=== PATIENT | female | born 1950 | race Caucasian/White ===

== ENCOUNTER 2017-11-29 09:47 | Inpatient (IN) | payer MEDICARE ==
[~2017-11-29] VITALS: Ht 157.5 cm; Wt 46.3 kg
[2017-11-29] MEDS ORDERED: CITALOPRAM HBR20 MG PO (10:30)
[2017-11-29] MEDS ORDERED: METOPROLOL TAR100 MG PO (10:31)
--- NOTE | 2017-11-29 13:30 | NUR ---
PT ARRIVED FROM ED. AMBULATORY INDEPENDENT TO HOSPITAL BED. PT ALERT AND ORIENTED. DENIES PAIN, NAUSEA, OR OTHER CONCERNS. ASSESSMENT COMPLETE. IV IN LEFT FA FLUSHES WELL, SITE CDI. CALL LIGHT WITHIN REACH.
--- NOTE | 2017-11-29 15:40 | NUR ---
PT JANET CLEAR LIQUIDS, STARTED BOWEL PREP. PT UP A COUPLE TIMES TO BSC WITH MINIMAL ASSIST. RESTING IN BED OTHERWISE. CALL LIGHT WITHIN REACH.
--- NOTE | 2017-11-29 17:20 | NUR ---
PT WORKING ON BOWEL PREP. TAKING CLEARS. WATCHING TV DENIES NEEDS OR CONCERNS AT THIS TIME. CALL LIGHT WITHIN REACH. SATTING 100% ON RA.
--- NOTE | 2017-11-29 17:45 | NUR ---
PATIENT EATING DINNER, VITALS AND I/OS DONE BY THIS RACING SECRETARY AND HANDICAPPER AND RACING SECRETARY AND HANDICAPPERChantel BRADSHAW. CALL LIGHT IN REACH.
--- NOTE | 2017-11-29 18:06 | NUR ---
PATIENT CALLED FOR ASSISTANCE TO BEDSIDE COMMODE. CALLLIGHT IN REACH
--- NOTE | 2017-11-29 19:00 | NUR ---
PT SL AND TRANSFERRED TO IMAGING FOR CT. SBA TO WHEELCHAIR FOR TRANSFER.
--- NOTE | 2017-11-29 19:15 | NUR ---
BACK FROM DI. VIA W/C
--- NOTE | 2017-11-29 19:45 | NUR ---
COOP WITH ASSESSMENT, PT ON BOWEL PREP REGIMEN, AWRE OF IMPORTANCE TO COMPLETE MIRALAX BOWEL PREP. TOLERATING IT IN VERY SMALL AMOUNTS. CONTINUE TO ENCOURAGE PO BOWEL PREP FLUID PREPARATION. , AWARE THAT WE STILL NEED A URINE SAMPLE. UP TO BSC X1, DARK RED LIQUID-AND SEMIFORMED- COMBILATION OF MAROON COLORED BM NOTED. HEMOCULT+. IVF INFUSING.
--- NOTE | 2017-11-29 21:16 | NUR ---
CHECKED IN ON PT, HAS REMAINING BOWEL PREP IN CUP AT BEDSIDE OF BOTTLE 1. ENCOURAGED PT TO FINISH THAT CUP IN THE NEXT 20 MIN, SO SHE CAN GET STARTED ON THE 2ND BOTTLE, SHE SAID I JUST DON'T KNOW IF I CAN, EDUCATED HER ON ALL THE REASONS WHY SHE NEEDS TO FINISH IT, SAID I KNOW BUT I HAVEN'T BEEN EATING MUCH LAST FEW DAYS. WILL GO BACK AND CHECK AGAIN, THIS IS THE SECOND TIME IN THE PAST 45 MIN THAT THIS NURSE HAS ENCOURAGED HER TO GET THE BOWEL PREP IN, HAS HER PRIMARY NURSE AVIS. PT SIGNED THE CONSENT FORM, PLACED ON CHART.
--- NOTE | 2017-11-29 23:15 | NUR ---
CLEANED UP MESS, WATERY BM ON THE FLOOR, CLEANED UP PATIENT, CHANGED GOWN AND LINEN.
--- NOTE | 2017-11-30 00:59 | NUR ---
Pt resting, no s/s distress, continues having maroon colored liquid stools. Pt NPO for am procedure
--- NOTE | 2017-11-30 05:32 | NUR ---
PT CURRENTLY RESTING, EYES CLOSED, CONTINUES TO HAVE LIQUID MAROON COLORED STOOLS, DID NOT COMPLETED HER BOWEL PREP, DRANK ONLY 1/2 DOSE OF THE MILAX EVEN AFTER MUCH ENCOURAGEMENT. NPO SINCE 299. PULLED IV OUT BY ACCIDENT. REPLACED. R ARM RESTRICTED EXTREMITY. CONSENT SIGNED FOR EGD/COLONOSCOPY. PT HAD AN ABD XR EARLIER BEGINING OF SHIFT. NO C/O N/V OR ABD PAIN
--- NOTE | 2017-11-30 06:48 | NUR ---
Resting, eyes closed. IVF infusing. no c/o n/v or pain. continues to have liquid bm. Requires one person assist and fww
--- NOTE | 2017-11-30 08:24 | NUR ---
BEDSIDE REPORT RECEIVED FROM AVIS WINSTON. WHITE BOARD UPDATED. PATIENT SLEEPING AT THIS TIME. ALLOWED SLEEP. IVF INFUSING INTO LEFT ARM. CONTINUOUS PULSE OX READS 100% SATURATION. PATIENT AWAKE NOW WATCHING TELEVISION. UP TO BSC.
--- NOTE | 2017-11-30 09:11 | NUR ---
PT C/O HEARTBURN. ELEVATED PATIENT IN BED AND INCREASED HOB. WILL MONITOR.
--- NOTE | 2017-11-30 09:44 | NUR ---
PT UP ON BSC. NEW HAT PLACED IN COMMODE TO COLLECT URINE SAMPLE.
--- NOTE | 2017-11-30 11:31 | NUR ---
11/30/17 1131 Maria Alejandra Moore 1124-PATIENT ARRIVED TO PACU ON 3L NC O2 SAT 98% OXIMETER ON FOREHEAD. PATIENT LAYING LEFT LATERAL. ABDOMEN SOFT. REACTIVE TO VOICE. RR EVEN. 1130-PATIENT AWAKE DENIES PAIN OR NAUSEA. ENCOURAGED TO PASS FALTUS.
--- NOTE | 2017-11-30 12:10 | NUR ---
TO TO ROOM 112 FROM SURGERY. PT ALERT AND ORIENTED. PT ABLE TO TRANSFER HERSELF FROM STRETCHER TO HOSPITAL BED. PT'S MOTHER AT BEDSIDE. PT V/S STABLE. BEDSIDE REPORT FROM PROFESSIONAL SPORTS SCOUT.
--- NOTE | 2017-11-30 12:55 | NUR ---
PT ARRIVED TO FLOOR AT 1220. JAYDA RN CHECKED PATIENT IN AND RECEIVED REPORT FROM PROP SAWYER. PATIENT DOING WELL. FULL LIQUID TRAY ORDERED FOR PATIENT.
--- NOTE | 2017-11-30 13:08 | CONS ---
[facility] [address], [place] [address] Signed DATE OF CONSULTATION: 11/29/2017 CONSULTING PHYSICIAN: Jagdish Aguilera MD REQUESTING PHYSICIAN: Jennifer Coffman MD PROBLEM: Melena, epigastric pain, and weight loss. HISTORY OF PRESENT ILLNESS: This 67-year-old white woman is known to me from the past having undergone right total mastectomy with sentinel lymph node biopsy in 2006. She had stage I breast carcinoma. She did have chemotherapy following this. Medullary cancer was noted. She was assisted in her care by Dr. Nava at that time. She has been under the management of Dr. Kimberli Lozano. She has noted a 20-pound weight loss over the past several weeks and some upper abdominal pain. A plan for endoscopic evaluation as well as CT scan was outlined by Dr. Lozano. Indeed, the CT scan was to be performed in 2 days from now. She presented to the emergency room, where she was noted to have very dark stool considered with melena and a CBC showing a decreased hematocrit of 27. Her platelet count was 618,000. She is admitted for further evaluation and care to the care of Dr. Coffman. The patient denies any hematemesis. She does have history of poor appetite with nausea and a 20-pound weight loss over the past month or so. She is noted to have a markedly elevated creatinine at time of admission. Creatinine now 3.69. This is thought to be related to acute dehydration. PAST MEDICAL HISTORY: 1. Right-sided breast cancer, status post right total mastectomy, sentinel lymph node biopsy, considered stage I. Subsequent chemotherapy. 2. Hypertension. SOCIAL HISTORY: She is accompanied by her mother with whom she lives. Her several years ago from a brain bleed. She has a son, but he is not available at this time, as he is in the [facility]. ALLERGIES: Electronically Signed By: JAGDISH AGUILERA MD 11/30/17 1308 PATIENT NAME: JENNIFER GOODE CONSULTATION DATE OF : 48 REPORT #: [id number] PHYSICIAN: JAGDISH AGUILERA MD PCP: KIMBERLI LOZANO MD REPORT IS CONFIDENTIAL AND NOT TO BE RELEASED WITHOUT AUTHORIZATION [facility] [address] [place], [place] [address] Signed She has no known drug allergies. REVIEW OF SYSTEMS: Denies any dysphagia or hematemesis particularly. Does have some vague abdominal pain mostly in the upper abdomen. Has had weight loss as described. Denies any dysuria. PHYSICAL EXAMINATION: GENERAL: Pleasant white woman, who does not look to be in severe distress. She is accompanied by her mother. NECK: Trachea is midline. CHEST: Shows normal respiratory excursion. There is evidence of mastectomy. Pulses regular. ABDOMEN: Nondistended and soft. There is no palpable mass. I detect no ascites. EXTREMITIES: Show no clubbing, cyanosis, or edema. LABORATORY DATA: Lab studies were as previously noted. ASSESSMENT: The patient has a source of a gastrointestinal bleeding, which is manifest as anemia. This may well be a peptic source of problem for which an upper endoscopy would be helpful in diagnosis. Conversely, it may be possible she has a lower GI bleed source. She denies family history of stomach, esophageal, or colonic cancer, but possibility of a malignant source of bleeding is real. As regard to her breast cancer, there is no current evidence of recurrent breast cancer. Notes were reviewed showing she has been evaluated by Dr. Nava in 2010 and considered to have no evidence of disease at that time. PLAN: As I have discussed with Dr. Coffman, we will initiate a bowel prep today MiraLAX based-type and plan for upper endoscopy and colonoscopy tomorrow. The risks of bleeding, infection, perforation, and so forth were reviewed with her. By then, her creatinine may have improved with rehydration. Jagdish Aguilera MD JM/MODL /[id number] Electronically Signed By: JAGDISH AGUILERA MD 11/30/17 1308 PATIENT NAME: JENNIFER GOODE CONSULTATION DATE OF : 48 REPORT #: [id number] PHYSICIAN: JAGDISH AGUILERA MD PCP: KIMBERLI LOZANO MD REPORT IS CONFIDENTIAL AND NOT TO BE RELEASED WITHOUT AUTHORIZATION [address] [address] Signed cc: MD Jennifer Huntley MD Michael Driver Copies: KIMBERLI LOZANO MD, CYNTHIA MD DRIVER, MICHAEL ~ Electronically Signed By: JAGDISH AGUILERA MD 11/30/17 1308 PATIENT NAME: JENNIFER GOODE CONSULTATION DATE OF : 48 REPORT #: [id number] PHYSICIAN: JAGDISH AGUILERA MD PCP: KIMBERLI LOZANO MD REPORT IS CONFIDENTIAL AND NOT TO BE RELEASED WITHOUT AUTHORIZATION
--- NOTE | 2017-11-30 14:39 | EKG ---
[facility] [address] [facility] [place] [address] Signed Sinus rhythm with short [place] Anterior infarct , age undetermined Abnormal ECG No previous ECGs available Confirmed by ROGELIO DIANA MD ([id number]) on 11/30/2017 2:39:14 PM Electronically Signed By: ROGELIO DIANA MD 11/30/17 1439 PATIENT NAME: JENNIFER GOODE Electrocardiogram DATE OF : 48 PHYSICIAN: ROGELIO DIANA MD REPORT #: [id number] REPORT IS CONFIDENTIAL AND NOT TO BE RELEASED WITHOUT AUTHORIZATION
--- NOTE | 2017-11-30 14:53 | NUR ---
pt has visitor at bedside at this time.
--- NOTE | 2017-11-30 16:55 | NUR ---
pt resting comfortably with eyes closed. appears to be sleeping. resp rate even and unlabored.
--- NOTE | 2017-11-30 18:12 | NUR ---
PT HAD EGD/COLONOSCOPY DONE TODAY BY DR AGUILERA. FOUND SUSPICIOUS LESION THAT WAS BIOPSIED, A LARGE ULCER FOUND AND A VESSEL THAT WAS EXPOSED WAS CLIPPED. MAG RIDERS X2 TODAY. NS @ 100ML/HR. RIGHT ARM RESTRICTED. LABS DRAWN AT 1800. CARAFATE BEFORE MEALS. C/O ACID REFLUX FEELING AFTER EATING. WILL NEED REPEAT EGD IN 4-6WK TO SEE IF ULCER HEALING.
--- NOTE | 2017-11-30 19:04 | NUR ---
IN ROOM FOR REPORT, PT IS AWAKE IN BED. SHE DENIES NEEDS AT THIS TIME.
--- NOTE | 2017-11-30 21:50 | NUR ---
IN ROOM TO ASSESS PT AND ADMINISTER MEDICATIONS. ALSO HELPED HER TO THE COMMODE. SHE IS DOING GOOD ON RA WITH CONT PULSE OX. SHE HAS A COUGH THAT SHE CALLS A "SMOKERS COUGH". SHE DENIES PAIN AT THIS TIME. CALL LIGHT IS WITHIN REACH.
--- NOTE | 2017-11-30 22:03 | NUR ---
NOTIFIED DR DIANA THAT PT OPT TO NOT TAKE LOPRESSOR TONIGHT.
--- NOTE | 2017-11-30 23:32 | NUR ---
PT IS RESTING WITH EYES CLOSED, RESPIRATIONS ARE EVEN AND NONLABORED. CALL LIGHT IS WITHIN REACH.
--- NOTE | 2017-12-01 01:12 | NUR ---
PT IS RESTING WITH EYES CLOSED, RESPIRATIONS ARE EVEN AND NONLABORED. CALL LIGHT IS WITHIN REACH.
--- NOTE | 2017-12-01 03:02 | NUR ---
PT IS RESTING WITH EYES CLOSED, RESPIRATIONS ARE EVEN AND NONLABORED ON CONT PULSEOX AT 100%.
--- NOTE | 2017-12-01 05:15 | NUR ---
PT IS RESTING WITH EYES CLOSED, RESPIRATIONS ARE EVEN AND NONLABORED. CALL LIGHT IS WITHIN REACH.
--- NOTE | 2017-12-01 06:38 | NUR ---
ADMINISTERED CARAFATE AND BROUGHT PT FRESH ICEWATER. PT VOIDED AND IS BACK IN BED. PT STATES SHE HAS A LITTLE ABDOMINAL DISCOMFORT. SHE DENIES FURTHER NEEDS AT THIS TIME. CALL LIGHT IS WITHIN REACH.
--- NOTE | 2017-12-01 06:43 | NUR ---
PT RESTED WELL THROUGH THE NIGHT. HELD HER LOPRESSOR LAST NIGHT, DR DIANA IS AWARE. SHE IS TOLERATING A LIQUID DIET WITH SOME DISCOMFORT. SHE IS A SBA. IV FLUID IS NS AT 125 MLS/HR.
--- NOTE | 2017-12-01 07:45 | NUR ---
PATIENT WAS OFFERED A SHOWER. PATIENT REFUSED AT THIS TIME. WILL ASK AGAIN LATER. HANDS AND FACE WASHED. PATIENT SITTING UP IN BED CALL BUTTON IN REACH.
--- NOTE | 2017-12-01 07:55 | NUR ---
BEDSIDE REPORT RECEIVED FROM JOSIAS WINSTON. PATIENT LYING BACK IN BED WITH HOB RAISED. AWAKENED TO SOUND. WHITE BOARD UPDATED. ALL QUESTIONS ANSWERED. PATIENT EATING BREAKFAST NOW. TOLERATING FULL LIQUID DIET WELL. NO REFLUX FEELING YET. ADMINISTERED MORNING SCHEDULED MEDS. WILL REMOVE CONT PULSE OX FROM FOREHEAD.
--- NOTE | 2017-12-01 08:46 | OR ---
[facility] [address] [place], [place] [address] Signed DATE OF OPERATION: 11/30/2017 SURGEON: Jagdish Aguilera MD PREOPERATIVE DIAGNOSIS: Weight loss, upper abdominal pain, and melena. POSTOPERATIVE DIAGNOSES: 1. Giant duodenal ulcer with visible vessel. 2. Abnormal lesion of distal ascending colon. PROCEDURES: 1. Esophagogastroduodenoscopy with biopsy. 2. Esophagogastroduodenoscopy with application of hemoclips to visible vessel. 3. Total colonoscopy to cecum with biopsy of suspicious lesion of ascending colon. 4. Endoscopic tattoo of right colonic lesion. ANESTHESIA: Intravenous sedation propofol infusion; Rylee Escalona CRNA. INDICATION: This 67-year-old white woman was admitted by Dr. Coffman for melena and weight loss of at least 20 pounds. She has other medical problems including elevated creatinine and recently hyponatremia. She has been having upper abdominal pain, likely accounting for poor oral intake and weight loss and recently developed melena. Hematocrit is about 27. She has had no hematemesis. She has never had colonoscopy in the past and she has not previously been under care for a ulcer or other problem. She is admitted to undergo upper endoscopy and colonoscopy having undergone bowel prep yesterday. She understands the risks of bleeding, infection, perforation, and other unforeseen complications and wished to proceed. FINDINGS: Upper endoscopy identified the source of bleeding, no doubt. It is a large ulcer of the first portion of the duodenum. A visible vessel was noted and application of hemoclips x2 was accomplished. The remaining ulcer had a dense beltre white base. The stomach itself showed no evidence of ulceration. CLOtest was negative 20 minutes postprocedure. Esophagus was normal. The remaining duodenum was normal. On colonoscopy, she was found to have a somewhat suspicious lesion, which was rather small in the distal ascending colon. This was biopsied well and marked with Endomark Electronically Signed By: JAGDISH AGUILERA MD 12/01/17 0846 PATIENT NAME: JENNIFER GOODE OPERATIVE REPORT DATE OF : 48 REPORT #: [id number] PHYSICIAN: JAGDISH AGUILERA MD PCP: KIMBERLI DEVLIN MD REPORT IS CONFIDENTIAL AND NOT TO BE RELEASED WITHOUT AUTHORIZATION [facility] [address], [place] [address] Signed tattoo dye. The remaining colon was normal. DESCRIPTION OF PROCEDURE: The patient was brought to the operating room #2, now serving as endoscopy suite, placed in lateral decubitus position, and underwent topical Hurricaine spray hypopharyngeal anesthesia by the healthcare technician. A bite block was placed. She was given intravenous sedation with propofol infusional technique. An Olympus video upper endoscope was passed in the hypopharynx. The vocal cords were normal. Scope was advanced to the esophagus throughout its length, it was normal. Scope was passed to the stomach. Excess gastric juices were suctioned free. There was no sign of blood in the stomach. Rugal folds were normal. The antrum was reasonably normal, as was the pylorus. The scope was passed through the pylorus into the duodenum, which showed immediately second portion, which showed mild inflammatory change. Biopsies were obtained. The scope was carefully withdrawn and a very large bulbar ulcer was noted. It had a beltre white base. Irrigation was undertaken and a visible vessel was noted. It was not actively bleeding at this time, but would be considered high risk for bleeding. With all due care, 2 hemoclips were applied to the vessel. A small amount of bleeding occurred application, but then quickly stopped. Hemostasis was considered good. The scope was then withdrawn to the stomach. Biopsies were taken of the antrum for both DAREK and pathologic testing. Retroflex view undertaken showing a hiatal hernia of the GE junction. The distal esophagus showed no sign of inflammatory change or Perez's epithelium. Biopsies obtained, nevertheless. The scope was further withdrawn and removed. Consideration was made for avoiding the colonoscopy, but since she has never had colonoscopy in the past, I have deemed her appropriate to proceed particularly since she is gone through a bowel prep. Digital rectal examination was undertaken and additional sedation was given, and an [employer] video colonoscope passed in the rectum. The scope was manipulated throughout the colon, ultimately intubating the area of the cecum, where visualization was good. The ileocecal valve was visualized and photographs were taken. The scope was carefully withdrawn and then the distal ascending colon was a very subtle, but real adenomatous-appearing lesion. Multiple biopsies were taken of it. It was quite firm and somewhat suspicious to me for malignancy. On that basis and given its small size, Endomark tattoo dye was used with a sclerotherapy needle to rylee the site for future intervention. The scope was then withdrawn more fully and the remaining colon appeared entirely normal. Retroflexed view was normal as well. Scope was removed and the patient was taken to the recovery room in good condition. CONCLUDING DIAGNOSES: 1. Bleeding source related to giant duodenal ulcer with visible vessel, now secured with hemoclips. Electronically Signed By: JAGDISH AGUILERA MD 12/01/17 0846 PATIENT NAME: JENNIFER GOODE OPERATIVE REPORT DATE OF : 48 REPORT #: [id number] PHYSICIAN: JAGDISH AGUILERA MD PCP: KIMBERLI DEVLIN MD REPORT IS CONFIDENTIAL AND NOT TO BE RELEASED WITHOUT AUTHORIZATION [facility] [address] [place] [address] Signed 2. Suspicious lesion of distal ascending colon, fully biopsied and marked with Endomark tattoo dye. PLAN: She will return to the regular nursing floor and will be initiated on a full liquid diet, but also start with Carafate and continue with Protonix. Repeat upper endoscopy and colonoscopy will be undertaken in the next several weeks. MD ANSON Palmer/EDINSONL /[id number] cc: MD Kimberli Romo MD Lohith Veerappa Reddy, MD Copies: JENNIFER COFFMAN MD, JONATHAN MD REDDY, LOHITH VEERAPPA MD ~ Electronically Signed By: JAGDISH AGUILERA MD 12/01/17 0846 PATIENT NAME: JENNIFER GOODE OPERATIVE REPORT DATE OF : 48 REPORT #: [id number] PHYSICIAN: JAGDISH AGUILERA MD PCP: KIMBERLI DEVLIN MD REPORT IS CONFIDENTIAL AND NOT TO BE RELEASED WITHOUT AUTHORIZATION
--- NOTE | 2017-12-01 09:44 | NUR ---
PATIENT UP TO BATHROOM AND BACK TO BED. PATIENT COMPLAINS OF GAS PAIN. OFFERED TO WALK WITH PATIENT IN HALLWAY. PATIENT REFUSED. FRESH ICE WATER GIVEN. CALL BUTTON IN REACH. NO OTHER NEEDS AT THIS TIME. PATIENT REFUSED ORAL CARE AT THIS TIME AND STATES SHE WILL NEXT TIME. SHE GETS UP TO THE BATHROOM.
--- NOTE | 2017-12-01 11:10 | NUR ---
pt ambulated halls x1 lap. patient tolerated fair. had to stop and sit to take breaks d/t legs feeling weak. lying in bed now with visitors at bedside.
--- NOTE | 2017-12-01 13:24 | NUR ---
MED REC COMPLETE
--- NOTE | 2017-12-01 14:16 | NUR ---
PT RESISTANT TO SHOWER TODAY. CHIP LOFT WORKER FREQUENTLY ENCOURAGING PATIENT TO SHOWER. NURSE TO ENCOURAGE PATIENT WELL.
--- NOTE | 2017-12-01 18:22 | NUR ---
AMBULATED HALLS X1 TODAY. WEAKNESS IN LEGS. TOOK SEVERAL BREAKS DURING ONE LAP. SBA/1PA. PHOS NAK PACKETS ORDERED FOR PHOS 1.5. NS @ 50ML/HR. D/C TOMORROW PENDING LABS IN AM. MAY NEED TO TRANSFUSE BLOOD IF H&H STILL LOW. GI COCKTAIL GIVEN X1 FOR PAIN FROM ACID REFLUX FEELING. IMPROVED. CARAFATE BEFORE MEALS.
--- NOTE | 2017-12-01 19:08 | NUR ---
IN ROOM FOR REPORT, PT IS AWAKE IN BED WITH VISITORS IN THE ROOM. SHE DENIES NEEDS AT THIS TIME. CALL LIGHT IS WITHIN REACH.
--- NOTE | 2017-12-01 20:16 | NUR ---
ROUNDED CHARGE. RN IN THE ROOM. PATIENT DENIES ANY COMMENTS, QUESTIONS ORC CONCERNS. NO NEEDS NOTED. CALL LIGHT IN REACH.
--- NOTE | 2017-12-01 20:19 | NUR ---
IN ROOM TO ADMINISTER MEDICATIONS AND ASSESS PT. SHE STATES SHE CONTINUES TO FEEL WEAK. SHE IS PASSING LOOSE GREEN STOOL AND BOWEL TONES ARE HYPERACTIVE. NO BLOOD SEEN IN STOOLS. SHE IS TOLERATING A CLEAR LIQUID DIET WITH 1-2 PAIN FROM ABD DISCOMFORT. SHE DENIES NEEDS AT THIS TIME. CALL LIGHT IS WITHIN REACH.
--- NOTE | 2017-12-01 23:42 | NUR ---
PT CALLED REQUESTING THE GI COCKTAIL STATING SHE HAS BEEN UNCOMFORTABLE SINCE TAKING HER EVENING MEDS. ADMINISTERED IT AND PT DENIES FURTHER NEEDS. CALL LIGHT IS WITHIN REACH.
--- NOTE | 2017-12-02 00:30 | NUR ---
PT IS RESTING WITH EYES CLOSED, RESPIRATIONS ARE EVEN AND NONLABORED. CALL LIGHT IS WITHIN REACH.
--- NOTE | 2017-12-02 00:49 | NUR ---
STANDBY ASSISTED PATIENT TO THE BATHROOM AND BACK TO BED. WARM BLANKET PROVIDED. CALL LIGHT WITHIN REACH. NO OTHER NEEDS AT THE MOMENT.
--- NOTE | 2017-12-02 03:28 | NUR ---
PT STATES THE GI COCKTAIL HELPED WITH HER ABD PAIN. SHE DENIES FURTHER NEEDS AT THIS TIME. CALL LIGHT IS WITHIN REACH.
--- NOTE | 2017-12-02 05:05 | NUR ---
PT SLEPT WELL THROUGH THE NIGHT. IV IS INFUSING NS @50MLS/HR. PT HAD SEVERAL LOOSE STOOLS THAT ARE GREEN IN COLOR NO BLOOD NOTED. PT IS TOLERATING FULL LITQUID DIET WITH SOME ABD PAIN. H&H WILL BE CHECKED AGAIN THIS MORNING.
--- NOTE | 2017-12-02 06:02 | NUR ---
IN ROOM TO ADMINISTER CARAFATE. PT DENIES FURTHER NEEDS AT THIS TIME. CALL LIGHT IS WITHIN REACH.
--- NOTE | 2017-12-02 07:35 | NUR ---
PATIENT RESTING IN BED. PATIENT STATES SHE DIDNT WANT TO WASH HANDS AND FACE OR BRUSH HER TEETH AT THIS TIME, THAT SHE ALREADY SHOWERED AND CLEANED UP YESTERDAY AND "THAT WAS ENOUGH FOR ME". PATIENT CALL LIGHT IN REACH. NO OTHER NEEDS AT THIS TIME.
--- NOTE | 2017-12-02 08:50 | NUR ---
PATIENT ASSESSMENT COMPLETED, PATIENT WITH EVEN AND UNLABORED BREATHING AT REST, EXERTIONAL DYSPNEA NOTED WHILE AMBULATING TO THE RESTROOM, PATIENT WITH OCCASIONAL COUGH, NO SPUTUM, OTHERWISE LUNG SOUNDS CLEAR. PATIENT WITH NORMAL CIRCULATION, GOOD DISTAL CAP REFILL, BILATERAL RADIAL PULSES PALPABLE. PATIENT WITH STANDBY ASSIST DUE TO GENERALIZED WEAKNESS. ABDOMINAL WITH MILD DISTENSION, PATIENT REPORTS THIS IS NORMAL, SOFT, NON-TENDER, HYPERACTIVE BOWEL TONES IN ALL QUADRANTS.
--- NOTE | 2017-12-02 08:50 | NUR ---
PATIENT STATING FEELS "GASSY" DENIES NAUSEA OR ABDOMINAL PAIN. PATIENT ABLE TO AMBULATE WITH STANDBY ASSISTANCE DUE TO GENERALIZED WEAKNESS TO BATHROOM, PATIENT WITH DARK/GREEN SMALL LOOSE STOOL, NORMAL URINE OUTPUT. PATIENT REPORTS DECREASE IN FEELING "GASSY" AFTER BOWEL MOVEMENT. PATIENT REPOSITIONED IN BED AND NEW WARM BLANKETS PROVIDED FOR COMFORT. PATIENT DENIES PAIN AT THIS TIME.
--- NOTE | 2017-12-02 09:32 | NUR ---
PATIENT REPORTING FEELINGS OF ACID REFLUX AFTER COMPLETING 50% OF BREAKFAST, PRN G.I. COCKTAIL WILL BE ADMINISTERED.
--- NOTE | 2017-12-02 09:34 | NUR ---
PATIENT RESTING IN BED. CALL LIGHT IN REACH. NO OTHER NEEDS AT THIS TIME.
--- NOTE | 2017-12-02 09:44 | NUR ---
NEW INTRAVENOUS FLUIDS STARTED DUE TO COMPLETION OF PREVIOUS NORMAL SALINE 1 LITER, IV CONTINUOUS.
--- NOTE | 2017-12-02 09:50 | NUR ---
DISCUSSED WITH PATIENT ABOUT NEW ORDERS FOR ADMINISTRATION OF TWO UNITS OF PACKED RED BLOO CELLS. ANSWERED PATIENT'S QUESTIONS ABOUT CONSENT FORM, PATIENT READ AND SIGNED CONSENT FORM. LAB NOTIFIED.
--- NOTE | 2017-12-02 11:13 | NUR ---
PATIENT REPORTS IMPROVEMENT OF ACID REFLUX AFTER ADMINISTRATION OF G.I. COCKTAIL.
--- NOTE | 2017-12-02 11:48 | NUR ---
PATIENT WITH STANDBY ASSIST TO BATHROOM, PATIENT WITH NOTED GENERALIZED WEAKNESS AND SLIGHT UNSTEADY GAIT.
--- NOTE | 2017-12-02 11:56 | NUR ---
PATIENT RESTING IN BED, CALL LIGHT IN REACH. NO OTHER NEEDS AT THIS TIME.
--- NOTE | 2017-12-02 12:39 | NUR ---
UNIT 1 OF 2 PRBC'S CURRENTLY INFUSING, STAYED AT PATIENT BEDSIDE FOR FIRST 15 MINUTES OF TRANSFUSION, NO SIGNS OR SYMPTOMS OF BLOOD REACTION. PATIENT RESTING COMFORTABLY, CALL LIGHT WITHIN REACH, WARM BLANKETS PROVIDED.
--- NOTE | 2017-12-02 13:19 | NUR ---
PT RESITNG IN BED, RRECOGNIZED ME AND FELT COMFORTABLE WITH MY PRESENCE. PT STILL MOURNING THE LOSS OF HER CLOSE FRIEND'S RECENTLY. NOW SHE IS DEALING WITH NEW HEALTH ISSUES-STOMACH ULCERS. PT WAS RECEIVING A BLOOD TRANSFUSION WE VISITED. PT EXPRESSED SOME FRUSTRATION AT HER OWN HEALTH ISSUES THAT HAVE DEFINATELY PUT A HOLD ON HER LIFE, AND LIMITED HER ABLILITY TO BE THERE FOR HER FRIEND. PT REQUESTED PRAYER, WILL CONTINUE TO FOLLOW NEEDED
--- NOTE | 2017-12-02 13:30 | NUR ---
PT WITH IV SITE LEAKING, BLOOD TRANSFUSION STOPPED. IV DISCONTINUED. NEW IV STARTED TO LEFT UPPER ARM, PT TOLERATED WELL. BLOOD INFUSION RESTARTED. PT RESTING IN BED. PT DENIES OTHER NEEDS AT THIS TIME.
--- NOTE | 2017-12-02 14:07 | NUR ---
PATIENT RESTING IN BED, CALL LIGHT IN REACH. FAMILY IN ROOM. NO OTHER NEEDS AT THIS TIME.
--- NOTE | 2017-12-02 15:30 | NUR ---
TRANSFUSION COMPLETED, PATIENT TOLERATED WELL, NO SIGNS AND SYMPTOMS OF TRANSFUSION REACTION.
--- NOTE | 2017-12-02 15:51 | NUR ---
PATIENT WITH SECOND UNIT OF BLOOD CURRENTLY INFUSING, NO SIGNS OR SYMPTOMS OF TRANSFUSION REACTION DURING FIRST 15 MINUTES OF BLOOD TRANSFUSION, PATIENT RESTING COMFORTABLY WITH NO FURTHER COMPLAINTS.
--- NOTE | 2017-12-02 15:58 | NUR ---
PATIENT RESTING IN BED. CALL LIGHT IN REACH. NO OTHER NEEDS AT THIS TIME.
--- NOTE | 2017-12-02 17:59 | NUR ---
TRANSFUSION 2 OF 2 COMPLETED. PT TOLERATED WELL. NO S/S OF TRANSFUSION REACTION. PT RESTING IN BED. PT DENIES OTHER NEEDS AT THIS TIME.
--- NOTE | 2017-12-02 18:17 | NUR ---
PATIENT RESTING IN BED, RN IN ROOM. RN STATES SHE WILL DOCUMENT VITALS. NO OTHER NEEDS AT THIS TIME.
--- NOTE | 2017-12-02 18:33 | NUR ---
PT ON ROOM AIR, LUNG SOUNDS DIMINISHED IN BASES, NONPRODUCTIVE COUGH. PT RECEIVED 2 UNITS PRBC TODAY, NEW IV TO LEFT UPPER ARM. PT TOLERATING SOFT DIET, CARAFATE BEFORE MEALS, GI COCKTAIL GIVEN X1. PT UP WITH SBA TO BATHROOM, WEAKNESS. PT SHOULD DISCHARGE TOMORROW.
--- NOTE | 2017-12-02 20:49 | NUR ---
ROUNDED CHARGE. PATIENT IS RESTING IN BED WATCHING TV. PATIENTS TRAY TAKEN TO THE RETURN AND SANDWICH PLACED IN THE FRIDGE FOR LATER. PATIENT DENIES ANY COMMENTS, QUESTIONS, OR CONCERNS. NO NEEDS NOTED. CALL LIGHT IN REACH.
--- NOTE | 2017-12-02 20:51 | NUR ---
VITALS AND I&OS DONE AND CHARTED. FRESH ICE GIVEN. BEDSIDE TABLE AND CALL LIGHT WITHIN REACH.
--- NOTE | 2017-12-02 21:20 | NUR ---
gi cocktail given on requests c/o sore throat. Coop with assessment. Moist productive cough, very scant amount soft phlegm clear oral drainage after coughing sometimes
--- NOTE | 2017-12-03 02:33 | NUR ---
PT AWAKENS EASILY, C/O UNABLE TO FEEL RESTED TONIGHTS, WORRIED ABOUT AM DC. REASSURED. NO FURTHER C/O THROAT PAIN OR PAIN. TURNS SELF IN BED,
--- NOTE | 2017-12-03 04:40 | NUR ---
RESTING, CONTINUES TO HAVE MOIST, PRODUCTIVE COUGH OF SCANT AMOUNT OF PHLEGM, NO OTHER C/O, NO FURTHER C/O RECTAL BLEEDING.
--- NOTE | 2017-12-03 05:41 | NUR ---
PT RESTING, EYES CLOSED, [place] DISTRESS. C/O UPSET STOMACH AND SORE THROAT X1, RECEIVED GI COCKTAIL AT HER REQUESTS. EFFECTIVE. NO C/O BLOODY STOOLS . REQUIRES ONE PERSON ASSIST, ON ROOM AIR. PT WAS ANXIOUS EARLIER ON THE SHIFT DUE TO PENDING HOME DC. REASSURED. CALMED DOWN. NO C/O N/V OR PAIN
--- NOTE | 2017-12-03 06:26 | NUR ---
Awake watching TV, no c/o abd pain or n/v
--- NOTE | 2017-12-03 07:36 | NUR ---
REPORTED TO CRITICAL LAB VALUE AT THIS TIME.
--- NOTE | 2017-12-03 07:57 | NUR ---
HEAD TO TOE COMPLETED AND 325 MG FERROUS SULFATE ADMINISTERED AROUND 0740. PT REPORTS NO C/O PAIN BUT CAN FEEL THAT SHE HAD A PROCEDURE DONE ON HER ABDOMEN. PT IS IN GOOD SPIRITS, DENIES ANY OTHER NEEDS AT THE MOMENT AND IS HOPING TO BE DISCHARGED TODAY.
--- NOTE | 2017-12-03 08:00 | NUR ---
PT WITH UPSET STOMACH, GIVEN PRN GI COCKTAIL. PT EDUCATED ON TAKING IRON TABLET WITH MEALS TO PREVENT GI UPSET. PT DENIES TOHER NEEDS AT THIS TIME.
--- NOTE | 2017-12-03 09:49 | NUR ---
FOCUSED ASSESSMENT, VITALS, I&O COMPLETED. HOWEVER PT IS STILL SNACKING ON BREAKFAST.
--- NOTE | 2017-12-03 11:38 | NUR ---
BOWEL TONES ACTIVE IN ALL FOUR QUADRANTS, PT DENIES ANY PAIN. SHE IS UP EATING LUNCH AND WATCHING TV. THE PLAN IS TO DO BED BATH, BED CHANGE, AND FACIAL CARE AFTER LUNCH.
--- NOTE | 2017-12-03 11:50 | NUR ---
REPORT TO MALCOM WINSTON AT THIS TIME
--- NOTE | 2017-12-03 12:00 | NUR ---
ASSUMING PATIENT'S CARE AT THIS TIME. PATIENT UP TO CHAIR, APPEARS IN NO DISTRESS. ANSWERED ALL QUESTIONS. CALL LIGHT IN REACH. EATING LUNCH
--- NOTE | 2017-12-03 14:09 | NUR ---
BOWEL TONES ACTIVE IN ALL FOUR QUADRANTS. RONCHI AUSCULATED IN LEFT UPPER LOBE AND DIMINISHED RONCHI IN LEFT LOWER LOBE, RIGHT LOBES ARE CLEAR. PT REPORTS 0/10 PAIN AND IS STILL WORKING ON HER LUNCH. MOTHER JUST LEFT AND DAUGHTER IS IN THE ROOM VISITNG. BED BATH, YADIRA CARE, EYE CARE, AND LINEN CHANGE ALL COMPLETED AND PHOSPHATE WAS ADMINISTERED. PT TOILETED AND BACK IN BED.
--- NOTE | 2017-12-03 14:17 | NUR ---
CONSULT RECEIVED FOR HELPING PATIENT UNDERSTANDS FOODS SHE CAN EAT WITH A PEPTIC ULCER. SHE SAID SHE HAS NOT BEEN EATING WELL ALL MONTH. SHE USED TO EAT HER MAIN MEAL AT THE [facility], WHICH IS A BALANCED MEAL, THEN HAVE A SNACK LATER IN THE EVENING. HER DAUGHTER HAS BEEN NAGGING HER TO EAT. PATIENT HAS NOT EVER HAD DIET EDUCATION REGARDING PEPTIC ULCER BEFORE. PROVIDED HER A LIST OF FOODS RECEOMMENDED AND FOODS TO AVOID. FOODS TO AVOID INCLUDE HIGH-FAT FOODS SUCH SAUSAGE, FRIED FOODS, HOT DOGS, ETC. OTHER FOODS TO AVOID INCLUDE CAFFEINE, SPICE FOODS, AND CITRUS. PATIENT UNDERSTANDS THESE FOODS. I ALSO ENCOURAGED HER TO EAT PROTEIN THROUGHOUT THE DAY TO HELP WITH PROTEIN SYNTHESIS. BUT, SHE ALSO NEEDS TO EAT ADEQUATE CALORIES. SHE DOES DRINK BOOST OR ENSURE AT HOME, SO I ENCOURAGED HER TO CHOOSE AN ENSURE PLUS OR BOOST PLUS FOR ADDED CALORIES AND PROTEIN. PATIENT SAID SHE WILL DO BETTER, AND HER DAUGHTER WILL CERTAINLY REMIND HER TO EAT REGULARLY AND EAT PROTEIN.
--- NOTE | 2017-12-03 14:35 | NUR ---
PATIENT UP WALKING IN THE HALLWAY WITH PHYSICAL THERAPIST. PATIENT TOLERATED WELL BUT REPORT FEELING TIRED AFTER AMBULATION. RESTING IN BED AT THIS TIME. NO ACUTE DISTRESS NOTED.
--- NOTE | 2017-12-03 16:18 | NUR ---
PATIENT LYING IN BED , APPEARS IN NO DISTRESS. REPORT NO PAIN OR NAUSEA. AFTERNOOD MED ADMINISTERED. PATIENT DENIES ANY NEEDS TO USE BATHROOM AT THIS TIME. CALL LIGHT IN REACH.
--- NOTE | 2017-12-03 17:32 | NUR ---
PATIENT RESTING IN BED. REPORTS BEING TIRED. PATIENT STATED THAT THE FOOD DOES NOT TASTE GOOD AND SHE DOES NOT FEEL LIKE EATING GRILLED CHEESE SANDWISH. PATIENT HAD JELLO AND COTTAGE CHEESE. PATIENT DENIES ANY PAIN OR NAUSEA AT THIS TIME. CALL LIGHT IN REACH.
--- NOTE | 2017-12-03 18:29 | NUR ---
PATIENT HAD A FAIR DAY. HAD PHYSICAL THERAPY TODAY, TOLERATED WELL BUT WAS FATIGUE AT THE END OF THE SESSION. DECREASE APPETITE. HAD PHOSPHATE REPLACEMENT IV AND PO FOR PHOSPHATE LEVEL OF 1.1. PATIENT IS WEAK AND NEED ASSISTANCE TO BATHROOM. IV SITE PATENT. U/O QUANTITY SUFFICIENT. VSS. CONSUTL WITH AGRICULTURAL ECONOMIST THIS AM. PATIENT IS A&O. DENIES PAIN AND NAUSEA THIS PM.
--- NOTE | 2017-12-03 19:10 | NUR ---
REPORT RECIEVED FROM DAY SHIFT RN. PT IN BED WITH FAMILY AT BEDSIDE. REPORTS FEELINGS OF NAUSEA ON AND OFF. PT IS SL. CALL LIGHT WITHIN REACH. REPORTS NO OTHERS NEEDS AT THIS TIME.
--- NOTE | 2017-12-03 21:03 | NUR ---
VITALS AND I&OS DONE AND CHARTED. APPLE JUICE AND ICE WATER GIVEN. WARM BLANKET ALSO GIVEN. BEDSIDE TABLE AND CALL LIGHT WITHIN REACH.
--- NOTE | 2017-12-03 21:19 | NUR ---
NOTIFIED BY BSA/AML COMPLIANCE OFFICER FLOYD OF B/P ON . BLOOD PREASURE MEDICATIONS GIVEN. WILL REASSESS IN 1 HOUR.
--- NOTE | 2017-12-03 22:46 | NUR ---
REASSESSED B/P. DOWN TO 150/[address] [facility].
--- NOTE | 2017-12-03 23:41 | NUR ---
REPOSITIONED PT. WARM BLANKET GIVEN. REPORTS STOMACH IS FEELING BETTER AT THIS TIME. CALL LIGHT WITHIN REACH. REPORTS NO OTHER NEEDS AT THIS TIME.
--- NOTE | 2017-12-04 02:30 | NUR ---
PT APPEARS TO BE SLEEPING. RESPIRAITONS ARE EQUAL AND NONLABORED. CALL LIGHT WITHIN REACH
--- NOTE | 2017-12-04 04:49 | NUR ---
PT IN BED. A/O WATCHING TV. RESPIRATIONS ARE EQUAL, ACCESSORY MUSCLES USED. OCCATIONAL COUGH. REPOTRS NO ABD DISCOFORT UNLESS SHE MOVES AROUND. ASSESSMENT COMPLETED. CALL LIGHT WITHIN REACH.
--- NOTE | 2017-12-04 05:45 | NUR ---
SLEPT THROUGHOUT NIGHT. UPSET STOMACH AT BEGINING OF SHIFT, RESOLVED WITH GI COCKTAIL. PT A/O. RECENT ADINOCARCINOMA DIAGNOSIS. DR AGUILERA TALKED TO PT. SBA, PLAN TO DC TODAY. SOFT DIET. LUNGS SOUND TIGHT AND DIM.
--- NOTE | 2017-12-04 05:52 | NUR ---
VITALS AND I&OS DONE AND CHARTED. GARBAGES EMPTIED. WARM BLANKET GIVEN. BEDSIDE TABLE AND CALL LIGHT WITHIN REACH.
--- NOTE | 2017-12-04 07:38 | NUR ---
RECIEVED BEDSIDE REPORT FROM CATRACHITO ORLANDO AND SN LISET. PT WOKE TO VOICE, ANXIOUS FOR DISCHARGE.
--- NOTE | 2017-12-04 07:55 | NUR ---
PATIENT UP IN BED, BREAKFAST IN FRONT. STUDENT WILL BE TAKING CARE OF PATIENT FOR MOST OF THE MORNING. CALL LIGHT IN REACH.
--- NOTE | 2017-12-04 08:18 | NUR ---
PATIENT IS EATING BREAKFAST IN BED, FACE WAS WASHED, PILLOWS PLACED UNDER CALVES TO FLOAT HEELS DUE TO REDNESS ON BOTH HEELS.
--- NOTE | 2017-12-04 09:56 | NUR ---
WENT ON A WALK WITH PT FOR 6 MINUTES FOR 300-350 FT. ORAL/DENTURE CARE PROVUIDED, LINEN CHANGE, HAIR COMBED. PT WAWS SITTING IN CHAIR FROM 0910 AND IS NOW BACK IN BED.
[2017-12-04] MEDS ORDERED: NICORETTE2 MG MM (10:27)
[2017-12-04] MEDS ORDERED: METOPROLOL TART50 MG PO (10:28)
[2017-12-04] MEDS ORDERED: FERROUS SULFAT325 MG PO (10:28)
[2017-12-04] MEDS ORDERED: MAG-AL LIQUID30 ML PO (10:29)
[2017-12-04] MEDS ORDERED: OMEPRAZOLE20 MG PO (10:30)
[2017-12-04] MEDS ORDERED: SUCRALFATE1 GM PO (10:30)
--- NOTE | 2017-12-04 11:46 | NUR ---
PATIENT'S DAUGHTER IS IN WITH HER AND LISTENED WHEN PHARMACY WENT OVER HER DISCHARGE MEDICATIONS. DAUGHTER ASKED QUESTIONS AND STUDENT RN HELPED TO CLARIFY. PATIENT WAS FEELING SOMEWHAT ANXIOUS AFTER DISCUSSING NEW MEDICATIONS AND MEDICATION CHANGES.
--- NOTE | 2017-12-04 13:30 | NUR ---
PT WAS LAYING IN BED, RESTING SOME FROM P.T. PT IS TO BE DC'D TODAY, SAID SHE WAS ANXIOUS TO RETURN HOME, BUT KNOWS SHE STILL HAS SOME WORK TO DO. PT HAS A GOAL TO BE WELL ENOUGH TO ASSIST ONE OF HER FRIENDS. PT REQUESTED PRAYER, WILL FOLLOW NEEDED
== END 2017-12-04 12:25 | disposition home or self-care (01) | DRG 378 ==
LOC: ED 09:47 → MS 12:47
PROVIDERS: Surgery; ADMIT Internal Medicine
PROC: 0DB68ZX Excision of Stomach, Via Natural or Artificial Opening Endoscopic, Diagnostic (ICD-10-PCS; 2017-11-30)
PROC: 0DB38ZX Excision of Lower Esophagus, Via Natural or Artificial Opening Endoscopic, Diagnostic (ICD-10-PCS; 2017-11-30)
PROC: 0DBK8ZX Excision of Ascending Colon, Via Natural or Artificial Opening Endoscopic, Diagnostic (ICD-10-PCS; 2017-11-30)
PROC: 3E0H8KZ Introduction of Other Diagnostic Substance into Lower GI, Via Natural or Artificial Opening Endoscopic (ICD-10-PCS; 2017-11-30)
PROC: 0W3P8ZZ Control Bleeding in Gastrointestinal Tract, Via Natural or Artificial Opening Endoscopic (ICD-10-PCS; principal; 2017-11-30 09:39)
PROC: 0DB98ZX Excision of Duodenum, Via Natural or Artificial Opening Endoscopic, Diagnostic (ICD-10-PCS; 2017-11-30 09:39)
DX: K26.4 Chronic or unspecified duodenal ulcer with hemorrhage (principal); C18.2 Malignant neoplasm of ascending colon; N17.9 Acute kidney failure, unspecified; E87.1 Hypo-osmolality and hyponatremia; D50.0 Iron deficiency anemia secondary to blood loss (chronic); I10 Essential (primary) hypertension; F17.200 Nicotine dependence, unspecified, uncomplicated; E83.39 Other disorders of phosphorus metabolism; E86.0 Dehydration; T39.395A Adverse effect of other nonsteroidal anti-inflammatory drugs [NSAID], initial encounter; D75.89 Other specified diseases of blood and blood-forming organs; E83.42 Hypomagnesemia; F39 Unspecified mood [affective] disorder; E86.1 Hypovolemia; D47.3 Essential (hemorrhagic) thrombocythemia; Z79.899 Other long term (current) drug therapy; Z85.3 Personal history of malignant neoplasm of breast
CPT/HCPCS: 36415; 36430; 74176; 80048; 80053; 80069; 82533; 82570; 82607; 82728; 82746; 83540; 83735; 83930; 83935; 84300; 84443; 84466; 84540; 84550; 85025; 86850; 86900; 86901; 86920; 88305; 93005; 93010; 97116; 97162; 99406; J2704; J3475; J7030; J7120; P9016

== ENCOUNTER 2018-03-22 10:15 | Inpatient (IN) | payer MEDICARE ==
[~2018-03-22] VITALS: Ht 157.5 cm; Wt 53.5 kg
--- OUTSIDE RECORDS SUMMARY | ~2018-03-22 | XMS | Clinical Summary ---
Demographics + + + | Address | [address] | | | [place] [address] | + + + | Home Phone | | + + + | Preferred Language | Unknown | + + + | Marital Status | | + + + | Voodoo Affiliation | Unknown | + + + | Race | Unknown | + + + | Ethnic Group | Unknown | + + + Author + + + | Author | [facility] | | | and [place] | + + + | Organization | [facility] | | | and [place] | + + + | Address | Unknown | + + + | Phone | Unavailable | + + + Support + + +---------+ + | Name | Relationship | Address | Phone | + + +---------+ + | Razia Whaley | ECON | Unknown | | + + +---------+ + Care Team Providers + +------+ + | Care Ecologist Technician Name | Role | Phone | + +------+ + PP | Unavailable | + +------+ + Allergies Not on File Current Medications Not on file Active Problems Not [...] Filed Vital Signs + + + + | Vital Sign | Reading | Time Taken | + + + + | Blood Pressure | 191/101 | 10/09/20151223 PDT | + + + + | Pulse | 71 | 10/09/20151223 PDT | + + + + | Temperature | 36.9 C (98.4 F) | 10/09/20151223 PDT | + + + + | Respiratory Rate | 16 | 10/09/20151223 PDT | + + + + | Oxygen Saturation | 99% | 10/09/20151223 PDT | + + + + | Inhaled Oxygen | - | - | | Concentration | | | + + + + | Weight | 56.2 kg (123 lb 14.4 | 10/09/20151223 PDT | | | oz) | | + + + + | Height | 157 cm (5' 1.81") | 10/09/20151223 PDT | + + + + | Body Mass Index | 22.8 | 10/09/20151223 PDT | + + + + Plan of Treatment +--------+ + + + + | Date | Type | Specialty | Care Team | Description | +--------+ + + + + | 03/26/ | Appointment | | Ryan Nava | | | 2017 | | | MD [address] | | | | | | [address] | | | | | | [place] | | | | | | [address] | | | | | | [phone] | | | | | | | | +--------+ + + + + + + + + + | Health Maintenance | Due Date | Last Done | Comments | + + + + + | Hepatitis C | | | | | Screening | 9 | | | + + + + + | Vaccine: | | | | | Dtap/Tdap/Td (1 - | 8 | | | | Tdap) | | | | + + + + + | BREAST CANCER | | | | | SCREENING (MAMM Q2 | 9 | | | | YEARS 50-74) | | | | + + + + + | Colorectal Cancer | | | | | Screening | 9 | | | | (Colonoscopy) | | | | + + + + + | Vaccine: Zoster (1 | | | | | of 2) | 9 | | | + + + + + | Vaccine: | | | | | Pneumococcal 65+ | 4 | | | | Low/Medium Risk (1 | | | | | of 2 - PCV13) | | | | + + + + + | Vaccine: Influenza | | | | | (#1) | 8 | | | + + + + + Results Not on filefrom Last 3 Months Insurance + +--------+ +--------+ +---------+ | Payer | Benefi | Subscriber | Type | Phone | Address | | | t Plan | ID | | | | | | / | | | | | | | Group | | | | | + +--------+ +--------+ +---------+ | MEDICARE | MEDICA | [id number] | Medica | [phone] | | | | RE | | re | [phone] | | | | PART A | | | | | | | AND B | | | | | + +--------+ +--------+ +---------+ | AARP | AARP | [id number] | Indemn | [phone] | | | | MDCR | | ity | [phone] | | | | SUPPL | | | | | + +--------+ +--------+ +---------+ + +--------+ +--------+ + + | Guarantor Name | Accoun | Relation to | Date | Phone | Billing Address | | | t Type | Patient | of | | | | | | | | | | + +--------+ +--------+ + + | JENNIFER TYLER | Person | Self [birth year] Home: | [address] [place] [address] | | | al/Fam | | [phone] | [phone] | [place] [address] | | | daniel | | | [phone] | | + +--------+ +--------+ + +
--- OUTSIDE RECORDS SUMMARY | ~2018-03-22 | XMS | Clinical Summary ---
Demographics + + + | Address | [address] | | | [place] [address] | + + + | Home Phone | | + + + | Preferred Language | Unknown | + + + | Marital Status | | + + + | Yarsani Affiliation | Unknown | + + + | Race | Unknown | + + + | Ethnic Group | Unknown | + + + Author + + + | Author | [facility] | | | and [place] | + + + | Organization | [facility] | | | and [place] | [...] Team Providers + +------+ + | Care Healthcare Corporate Account Director Name | Role | Phone | + [...] [place] | | | | | | [address] | | | | | | [phone] | | | | | | | [...] +--------+ +---------+ | MEDICARE | MEDICA | [id number] | Medica | [phone] | | | | RE | | re | [phone] | | | | PART A | | | | | | | AND B | | | | | + +--------+ +--------+ +---------+ | AARP | AARP | [id number] | Indemn | [phone] | | | MDCR | | [...] | Self | [birth year] | Home: | [address] [place] [address] | | | al/Fam | | [phone] | [phone] | [place] [address] | | | daniel | | | [phone] | | + +--------+ +--------+ + +
--- OUTSIDE RECORDS SUMMARY | ~2018-03-22 | XMS | Clinical Summary ---
Demographics + + + | Address | [address] | | | [place] [address] | + + + | Home Phone | | + + + | Preferred Language | Unknown | + + + | Marital Status | | + + + | Church Affiliation | Unknown | + + + | Race | Unknown | + + + | Ethnic Group | Unknown | + + + Author + + + | Author | [facility] | | | and [place] | + + + | Organization | [facility] | | | and [place] [...] Team Providers + +------+ + | Care Family And Divorce Legal Assistant Name | Role | Phone | [...] [place] | | | | | | [address] | | | | | | [phone] | | | | | | | [...] +--------+ +---------+ | MEDICARE | MEDICA | [id number] | Medica | [phone] | | | | RE | | re | [phone] | | | | PART A | | | | | | | AND B | | | | | + +--------+ +--------+ +---------+ | AARP | AARP | [id number] | Indemn | [phone] | | | | MDCR | | [...] | Self | [birth year] | Home: | [address] [place] [address] | | | al/Fam | | [phone] | [phone] | [place] [address] | | | daniel | | | [phone] | | + +--------+ +--------+ + +
[~2018-03-22 10:15] MED LIST: ALBUTEROL2.5 MG/3 M INH; ALUMINUM H600 MG/5 M PO; CITALOPRAM HBR20 MG PO; FERROUS SULFAT325 MG PO; LISINOPRIL20 MG PO; MAG-AL LIQUID30 ML PO; METOPROLOL TAR100 MG PO; METOPROLOL TART50 MG PO; NICORETTE2 MG MM; NORCO 5-325 TA1 EACH PO; OCUFLOX5 ML OPTH; OMEPRAZOLE20 MG PO; POTASSIUM CHLO10 MEQ PO; PREDNISOLONE ACE5 ML OPTH; SUCRALFATE1 GM PO; VENTOLIN HFA18 GM INH
[2018-03-22] MEDS ORDERED: FUROSEMIDE20 MG PO (11:00)
[2018-03-22] MEDS ORDERED: POTASSIUM CHLO20 ME1 PO (11:02)
--- NOTE | 2018-03-22 14:32 | NUR ---
PT ARRIVED FROM ED. PT TRANSFERED TO BED WITH 4 RN ASSIST. NEW PIV STARTED IN LEFT AC. PT ARRIVED WITH FIELD START IV IN RIGHT ARM BUT HAS HX OF MASTECTOMY IN RIGHT ARM. PIV IN RIGHT ARM DC'D PER PROTOCOL. ASSESSEMNT DONE. ADMISSION HX COMPLETED. FLUIDS STARTED, MEDICATION GIVEN (SEE MAR). PT REPORTS 3/10 PAIN THAT IS "OK IF I'M LYING STILL". PT ON 2 L O2 BY NC. BED RAILS UP. CALL LIGHT WITHIN REACH.
--- NOTE | 2018-03-22 15:51 | NUR ---
CHARGE NURSE INFORMED THIS RN THAT PT IS FEELING NAUSEAOUS AND HAS A SMALL EMISIS EPIODE. CHARGE NURSE NOTIFED MD. ORDER FOR ZOFRAN PLACED. THIS RN TO ROOM. MEDICATION GIVEN. PT RESTING IN BED WITH FAMILY AT BEDSIDE. NO REQUESTS OR COMPLAINTS. BED RAILS UP. CALL LIGHT WITHIN REACH.
[2018-03-22] MEDS ORDERED: LOPERAMIDE2 MG PO (15:57)
--- NOTE | 2018-03-22 16:45 | NUR ---
PUMP ALARMING, PT ANOYED WITH CONSTANT ALARMING. PT OFFERED NEW PIV SITE AND IS AGREEABLE TO A NEW PIV START. PIV STARTED PER PROTOCOL IN LEFT FORARM. LABS DRAWN FROM NEW PIV SITE. FLUSEHS WELL, BLOOD RETURN NOTED. REMAINDER OF MAGNESIUM INFUSION GIVEN THROUGH THIS PIV. PIV IN RAC SALINE LOCKED. ASSESSMENT DONE (SEE CHARTING BY CATRACHITO MENA). CALL LIGHT WITHIN REACH. FAMILY AT BED SIDE.
--- NOTE | 2018-03-22 16:54 | NUR ---
PATIENT FINISHED WITH BEDPAN. REMOVED BEDPAN AND CHANGED DRAW SHEET. PATIENT REPORTED 5/10 PAIN IMMEDIATELY AFTER. NEW IV STARTED BY CATRACHITO LOMELI AND BLOOD DRAWN FOR LAB. PATIENT REPORTED PAIN IS 3/10. PAIN MEDICATION GIVEN PER REQUEST (SEE MAR). ASSESSMENT DONE. OXYGEN SAT 97% ON 3 LPM VIA NC. FAMILY AT BEDSIDE. PATIENT EATING DINNER. CALL LIGHT WITHIN REACH. BEDRAILS UP. NO FURTHER REQUESTS AT THIS TIME.
[2018-03-22] MEDS ORDERED: SUCRALFATE1 GM PO (16:55)
[2018-03-22] MEDS ORDERED: FLINTSTONES1 EAC1 PO (16:56)
[2018-03-22] MEDS ORDERED: MAGOX 400400 MG PO (16:56)
--- NOTE | 2018-03-22 16:57 | NUR ---
MED REC COMPLETE
--- NOTE | 2018-03-22 17:53 | NUR ---
THIS RN NOTIFIED OF CRITICAL LAB VALUES. NOTIFIED (DR. PRICE). NO NEW ORDERS AT THIS TIME.
--- NOTE | 2018-03-22 18:17 | NUR ---
NEW ORDERS. MD IN ROOM FOR ROUNDS. RANDOM URINE COLLECTED FROM FELDMAN CATH, CLEAN CATCH FROM LUER LOCK. PIV ASSESSED. IV FLUIDS DC'D PER ORDER. PIVS SALINE LOCKED. PATIENT EDUCATED ON FLUID RESTRICTION, VERBALIZES UNDERSTANDING. URINE SENT TO LAB. MEDICATIONS GIVEN (SEE MAR). PATIENT IN BED WITH FAMILY AT BEDSIDE. CALL LIGHT WITHIN REACH. NO FURTHER REQUESTS AT THIS TIME.
--- NOTE | 2018-03-22 18:47 | NUR ---
PATIENT IN BED RESTING. PATIENTS B/P WAS LOW. RN NOTIFIED. FRESHWATER GIVEN. CALL LIGHT IN REACH. NO FURTHER NEEDS AT THIS TIME.
--- NOTE | 2018-03-22 18:54 | NUR ---
PATIENT ADMITTED POST PELVIC FX AND T12 COMPRESSION FX. HX OF RIGHT MASTECTOMY. STRICT BEDREST. MD MONITORING CRITICAL LAB VALUES. FLUID RESTRICTION OF 1500 ML. PATIENT USES CALL LIGHT APPROPRIATELY.
--- NOTE | 2018-03-22 19:07 | NUR ---
IN ROOM FOR REPORT, PT IS AWAKE IN BED. SHE DENIES NEEDS AT THIS TIME. CALL LIGHT IS WITHIN REACH.
--- NOTE | 2018-03-22 19:17 | NUR ---
NECK PINNER NOTIFIED THIS RN OF LOW BP. THIS RN TO ROOM TO CONFIRM MANUALLY. PATIENT DENIES DIZZYNESS OR LIGHTHEADEDNESS. MD NOTIFIED. MD ORDERED 1 LITER LR FLUID BOLUS.
--- NOTE | 2018-03-22 19:27 | NUR ---
ONE LITER BOLUS STARTED PER ORDER. PATIENT DENIES DIZZYNESS AND LIGHT HEADEDNESS. NO FURTHER REQUESTS AT THIS TIME.
--- NOTE | 2018-03-22 21:47 | NUR ---
ROUNDED CHARGE. PATIENT IS RESTING IN BED. PATIENT DENIES ANY PAIN. PATIENT DENIES ANY COMMETNS, QUESTIONS, OR COCERNS. NO NEEDS NOTED. CALL LIGHT IN REACH.
--- NOTE | 2018-03-22 22:30 | NUR ---
ASSESSED PT, IV BOLUS IS COMPLETE. PT DENIES DIZZINESS. PT REPORTS PAIN AT 3/10 WHICH IS TOLERABLE TO HER. SCHEDULED TYLENOL AND OTHER EVENING MEDICATIONS ADMINISTERED. NO BRUISING NOTED ON LEFT HIP. PT IS ABLE TO REPOSITION HERSELF IN BED. SHE DENIES NEEDS AT THIS TIME. CALL LIGHT IS WITHIN REACH.
--- NOTE | 2018-03-22 22:35 | NUR ---
RECEIVED CRITICAL LAB VALUE FROM STAFFING ADMINISTRATOR. NOTIFIED. NO NEW ORDERS A THIS TIME. LAB RECORDED IN BINDER.
--- NOTE | 2018-03-22 23:02 | NUR ---
PT IS RESTING WITH EYES CLOSED, RESPIRATIONS ARE EVEN AND NONLABORED WITH CALL LIGHT IS WITHIN REACH.
--- NOTE | 2018-03-23 00:42 | NUR ---
PT IS RESTING WITH EYES CLOSED, RESPIRATIONS ARE EVEN AND NONLABORED. CALL LIGHT IS WITHIN REACH.
--- NOTE | 2018-03-23 02:38 | NUR ---
PT IS RESTING WITH EYES CLOSED, RESPIRATIONS ARE EVEN AND NONLABORED. CALL LIGHT IS WITHIN REACH.
--- NOTE | 2018-03-23 04:58 | NUR ---
PT IS RESTING WITH EYES CLOSED, RESPIRATIONS ARE EVEN AND NONLABORED. CALL LIGHT IS WITHIN REACH.
--- NOTE | 2018-03-23 06:57 | NUR ---
REPORTED CRITICAL LAB OF NA+ [address] PRICE, ALSO REPORTED URINE OUTPUT OF 150 OVER NIGHT WELL PT'S COARSE LUNG SOUNDS AND RT'S RECOMMENDATION OF ACAPELLA AND NEB TRTS. HE SAID HE WOULD BE HERE TO SEE THE PATIENT SHORTLY. NO NEW ORDERS AT THIS TIME.
--- NOTE | 2018-03-23 08:20 | NUR ---
PATITENT RESTING IN BED. WASHED CLOTH PROVIDED. FRESH WATER GIVEN. CALL LIGHT IN REACH. NO OTHER NEEDS AT THIS TIME.
--- NOTE | 2018-03-23 08:21 | NUR ---
ASSESSMENT AND MEDICATIONS DUE. PATIENT IN BED RESTING. PATIENT REPORTS PAIN OF 3/10, SCHEDULED PAIN MED GIVEN (SEE MAR). PATIENT IS ON 4 LPM VIA NC WITH AN O2 SAT OF 90%, DENIES SOB. EDUCATED ON IS USE AND RETURNED DEMOSTRATION. CALL LIGHT WITHIN REACH. BED RAILS UP. NO FURTHER REQUESTS AT THIS TIME.
--- NOTE | 2018-03-23 09:48 | NUR ---
PAIN REASSESSMENT DUE. PATIENT APPEARS TO BE SLEEPING, RESPIRATIONS REGULAR, 18 PER MINUTE. PATIENT APPEARS COMFORTABLE. CALL LIGHT WITHIN REACH.
--- NOTE | 2018-03-23 10:32 | NUR ---
PT CALL LIGHT ON. PT REQUESTS PAIN MEDICATION FOR 5/10 PAIN IN HISP. SEE MAR FOR MEDICATION GIVEN. PT EATING BREAKFAST. NO ADDITIONAL REQUESTS OR COMPLAINTS. BED RAILS UP. CALL LIGHT WITHIN REACH.
--- NOTE | 2018-03-23 11:26 | NUR ---
PATIENT WAS AWKE IN BED WATCHIN TV. BED BATH WAS GIVEN,CALL LIGHT IN REACH. NO OTHER NEEDS AT THIS TIME.
--- NOTE | 2018-03-23 11:56 | NUR ---
ASSESSMENT AND MEDICATIONS DUE. ASSESSMENT DONE. ROOM AIR TRIAL ATTEMPTED. PATIENT COULD NOT HOLD SATS ABOVE 90%, PATIENT ON 2 LPM VIA NC NOW 92%. DEMONSTRATING CORRECT USE OF THE IS. PATIENT REPORTS PAIN IS "TOLERABLE" RATING IT 3/10. MEDICATIONS GIVEN (SEE MAR). PATIENT EATING LUNCH WITH MOTHER AT BEDSIDE. CALL LIGHT WITHIN REACH. NO FURTHER REQUESTS AT THIS TIME.
--- NOTE | 2018-03-23 12:30 | NUR ---
PT SITTING UP IN BED, EATING LUNCH. PT HAS QUIET VOICE, ALERT AND ORIENTED. I WANTED HER TO FINISH HER LUNCH, AND WILL RETURN. SHE THANKED ME, WILL FOLLOW NEEDED
--- NOTE | 2018-03-23 14:01 | NUR ---
THIS RN TO ROOM TO CHECK ON PT. PT REPORTS 5/10 PAIN AND REQUESTS PAIN MEDIATION (SEE MAR FOR MEDICAITON GIVEN). I/O CHECK DONE. LOW URINE OUTPUT NOTED. MD NOTIFIED. NO ORDERS AT THIS TIME (AWAITING LAB VALUES). PT REPOSITIONED IN BED. BED RAIL UP. CALL LIGHT SAVANNAIN REACH. DAUGHTER AT BEDSIDE.
--- NOTE | 2018-03-23 14:07 | NUR ---
NOTIFIED OF NA 119. WILL CHECK ALL LABS
--- NOTE | 2018-03-23 15:04 | NUR ---
US CALLED ASKED FOR FELDMAN TO BE CLAMPED AND TO BE NOTIFIED WHEN BLADDER FULL. FELDMAN CLAMPED. THIS RN CONCERNED ABOUT FLUID RESTRICTION AND FILLING BLADDER. MD INFORMED. MD ORDERED NS IV BOLUS. ORDER ENTERED. BOLUS STARTED. CALL LIGHT WITHIN REACH. NO FURTHER REQUESTS AT THIS TIME.
--- NOTE | 2018-03-23 16:55 | NUR ---
ASSESSMENT AND MEDICATION DUE. PATIENT REPORTED THAT ULTRASOUND IS COMPLETE. FELDMAN IS UNCLAMPED AND FREE FLOWING. PATIENT REPORTS THAT PAIN IS 3/10 WHEN AT REST AND 8/10 WHEN MOVING. PATIENT ENCOURAGED TO REST. PAIN IS TOLERABLE AT THIS TIME. PATIENT USED IS. CATHETER CARE DONE. CALL LIGHT WITHIN REACH. BED RAILS UP. NO FURTHER REQUESTS AT THIS TIME.
--- NOTE | 2018-03-23 17:26 | NUR ---
PATIENT HER POST PELVIC FX AND T12 COMPRESSION FX. HX OF RIGHT MASTECTOMY. STRICT BEDREST. MD MONITORING CRITICAL LAB VALUES. FLUID RESTRICTION OF 1500 ML. PATIENT USES CALL LIGHT APPROPRIATELY.
--- NOTE | 2018-03-23 18:33 | NUR ---
THIS RN NOTIFIED PATIENT NEEDED PAIN MEDS. PATIENT REPORTED PAIN 02/12. PAIN MEDICATION GIVEN (SEE MAR). PATIENT RESTING. CALL LIGHT WITHIN REACH. NO FURTHER REQUESTS AT THIS TIME.
--- NOTE | 2018-03-23 18:57 | NUR ---
PATIENT IN BED RESTING . CALL LIGHT IN REACH. NO OTHER NEED AT THIS TIME.
--- NOTE | 2018-03-23 19:10 | EKG ---
[facility] [address] [place] [address] Signed Normal sinus rhythm Nonspecific ST abnormality Abnormal ECG When compared with ECG of 27-JAN-2018 09:40, premature atrial complexes are no longer present Confirmed by HAILE PRICE DO ([id number]) on 03/23/2018 7:10:33 PM Electronically Signed By: HAILE PRICE DO 03/23/[id number] PATIENT NAME: JENNIFER GOODE Electrocardiogram DATE OF : 48 PHYSICIAN: HAILE PRICE DO REPORT #: [id number] REPORT IS CONFIDENTIAL AND NOT TO BE RELEASED WITHOUT AUTHORIZATION
--- NOTE | 2018-03-23 19:16 | NUR ---
IN ROOM FOR REPORT, PT IS AWAKE IN BED. SHE DENIES NEEDS AT THIS TIME AND CALL LIGHT IS WITHIN REACH.
--- NOTE | 2018-03-23 22:04 | NUR ---
MEDICATIONS WERE ADMINISTERED AND ASSESSMENT IS COMPLETE. PT WAS ALSO REPOSITIONED IN BED D/T HIP PAIN. ADMINISTERED 1MG IV MORPHINE FOR BREAKTHROUGH PAIN OF 5/10 UNTIL NEXT OXYCODONE IS DUE. PT HAS FRESH WATER AT BEDSIDE FOR THE REMAINDER OF HER FLUID RESTRICTION. PT DENIES FURTHER NEEDS AT THIS TIME. CALL LIGHT IS WITHIN REACH.
--- NOTE | 2018-03-23 22:17 | NUR ---
V/S AND I&O DONE AND CHARTED. PATIENT STATED "NOTHING NEEDED" AT THIS TIME.
--- NOTE | 2018-03-23 22:59 | NUR ---
PT IS RESTING WITH EYES CLOSED, RESPIRATIONS ARE EVEN AND NONLABORED. CALL LIGHT IS WITHIN REACH.
--- NOTE | 2018-03-24 00:33 | NUR ---
PT IS RESTING WITH EYES CLOSED, RESPIRATIONS ARE EVEN AND NONLABORED. CALL LIGHT IS WITHIN REACH.
--- NOTE | 2018-03-24 02:13 | NUR ---
PT IS RESTING WITH EYES CLOSED, RESPIRATIONS ARE EVEN AND NONLABORED. CALL LIGHT IS WITHIN REACH.
--- NOTE | 2018-03-24 04:05 | NUR ---
PT IS RESTING WITH EYES CLOSED, RESPIRATIONS ARE EVEN AND NONLABORED. CALL LIGHT IS WITHIN REACH.
--- NOTE | 2018-03-24 05:49 | NUR ---
IN ROOM TO ADMINISTER PAIN MEDICINE. PT RATES PAIN AT 5/10 WITHOUT MOVING. SHE DENIES FURTHER NEEDS AT THIS TIME. CALL LIGHT IS WITHIN REACH.
--- NOTE | 2018-03-24 06:02 | NUR ---
PT'S O2 SAT WAS LOW IN UPPER 70'S TO 80'S, TURNED O2 UP TO 4 LNC. SHE TOOK A LITTLE TIME TO RECOVER BUT IS NOW BACK AT 93% ON 2LNC. PT DENIES FEELING SOB. NOTIFIED RT, WILL ASSESS PT.
--- NOTE | 2018-03-24 06:27 | NUR ---
PT IS ON STRICT BED REST AND A REGULAR DIET WITH 1800 CC FLUID RESTRICTION. SHE WAS GIVEN 1L OF LR OVER THE NIGHT AT 100MLS/HR AND IS NOW SL. URINE OUTPUT WAS ON THE LOW END OF 300 ALL NIGHT BUT IS AN IMPROVEMENT FROM THE NIGHT PRIOR OF 150MLS. THIS AM HER O2 SAT WAS LOW AND IT TOOK SOME TIME TO RECOVER. RT GAVE A NEB TRT AND RECOMMENDS CONTINUOUS PULSEOX TONIGHT AND/OR OXYMASK, SINCE PT SEEMS TO HAVE TROUBLE IN THE MORNING. SHE IMPROVED WITH NEB TRT AND INCREASED TO 97% ON 2 LNC.
--- NOTE | 2018-03-24 07:46 | NUR ---
PATIENT REPORT RECEIVED FROM JOSIAS RN, PATIENT MOVED UP IN BED AND BREAKFAST SET UP FOR HER AT THIS TIME. PATIENT IS ALERT AND ORIENTED. PAIN CURRENTLY IN THE LEFT HIP AND PELVIS 11/12, SCHEDULED TYLENOL GIVEN PO. PATIENT REFUSED SENNA AT THIS TIME DUE TO LOOSE BM YESTERDAY, DID TAKE MIRALAX.
--- NOTE | 2018-03-24 08:23 | NUR ---
PATIENT RESTING IN BED, JUST FINISHED BREAKFAST. PATIENT REFUSED AM CARE. PATIENT CALL LIGHT IN REACH. NO OTHER NEEDS AT THIS TIME.
--- NOTE | 2018-03-24 08:58 | NUR ---
PATIENT CURRENTLY RESTING WITH EYES CLOSED, LR HUNG AND RUNNING AT 100MLS/HR AND IV MAG HUNG. PAIN LEVEL DOWN TO 4/10. CMS INTACT TO BILATERAL EXTREMETIES.
--- NOTE | 2018-03-24 10:26 | NUR ---
PATIENT RESTING IN BED, CALL LIGHT IN REACH. NO OTHER NEEDS AT THIS TIME. RN NOTIFIED OF LOW OUTPUT.
--- NOTE | 2018-03-24 10:56 | NUR ---
PATIENT RESTING WITH EYES CLOSED, RAILS UP X4
--- NOTE | 2018-03-24 11:35 | NUR ---
PATIENTS PAIN UP TO 10/10 WITH ANY MOVEMENT IN BED, PATIENT REQUSTIENT PAIN MEDICATION AT THIS TIME. OXYCODONE 10MG GIVEN NOW. DOCTOR GISELA WAS IN FOR CONSULT, SPOKE WITH PATIENT REGARDING FX.
--- NOTE | 2018-03-24 12:26 | NUR ---
DOCTOR ALBERT IN TO SEE THE PATIENT, SHE CAN NO BE UP AD ALIREZA IN THE ROOM.
--- NOTE | 2018-03-24 13:33 | NUR ---
RN ELVA NOTIFIED OF LOW O2 AND HIGH PULSE. RN IN ROOM FOR TREATMENT.
--- NOTE | 2018-03-24 13:38 | NUR ---
PATIENT RESTING IN BED. UPON ENTERING PATIENT'S ROOM, THIS [employer] PACKER FOUND PATIENT WITH A BLOODY NOSE. PATIENT STATES IT HAS BEEN BLEEDING FOR AWHILE. FAMILY IN ROOM. VITALS TAKEN. RN NOTIFIED OF ABNORMAL VITALS, LOW OUTPUT, AND BLOODY NOSE. NO OTHER NEEDS AT THIS TIME.
--- NOTE | 2018-03-24 13:55 | NUR ---
UPDATED PATIENT'S FAMILY ON PATIENT'S ABILITY TO MOVE AROUND AD ALIREZA. PATIENT'S URINE OUTPUT FOR THE LAST 4 HOURS ONLY 60 DOCTOR PRICE NOTIFIED.
--- NOTE | 2018-03-24 14:00 | NUR ---
PT SITTING IN BED, FINISHING LUNCH. SHE HAS HER FAMILY IN, SHE SEEMS TO BE ENJOYING THEIR COMPANY. PT MENTIONED SHE SLEPT WELL, EXTENDED A BLESSING AND WILL LET HER CONTINUE TO VISIT.
--- NOTE | 2018-03-24 14:57 | NUR ---
PATIENT PREMEDICATED FOR PHYSICAL THERAPY.
--- NOTE | 2018-03-24 15:36 | NUR ---
PATIENT WORKING WITH PHYSICAL THERAPY, 2 PERSON ASSIST WITH FWW, PATIENTS OXYGEN LEVEL WITH AMBULATION TO THE DOOR WENT DOWN TO 88%
--- NOTE | 2018-03-24 17:29 | NUR ---
PATIENT SITTING UP IN BED ON HER COMPUTER, ATE 90% OF HER DINNER AT THIS TIME.
--- NOTE | 2018-03-24 17:39 | NUR ---
PATIENT RESTING IN BED, CALL LIGHT IN REACH. RN NOTIFIED OF LOW OUTPUT. NO OTHER NEEDS AT THIS TIME.
--- NOTE | 2018-03-24 17:41 | NUR ---
patient requesting a pain pill at this time, patient's urine output is low at 50mls/hr. Doctor Serg notified of low urine out for the past 4 hours
--- NOTE | 2018-03-24 18:47 | NUR ---
PATIENT'S PAIN REMAINS THE SAME AT THIS TIME, NO COMPLAINTS NO NEEDS AT THIS TIME.
--- NOTE | 2018-03-24 19:11 | NUR ---
RECIEVED REPORT FROM CATRACHITO ORLANDO. PT LAYING IN BED, VISITORS IN ROOM. 2 L OXYGEN VIA NC. PAIN 5 BUT DENIES NEED FOR PAIN MEDICATIONS AT THIS TIME. IVF INFUSING WNL. CALL LIGHT IN REACH. NO NEEDS AT THIS TIME.
--- NOTE | 2018-03-24 20:00 | NUR ---
IN PT ROOM, NEW BAG IVF INFUSING WNL. PT STATES PAIN "ABOUT THE SAME", "OKAY WHEN NOT MOVING". EDUCATION PROVIDED REGARDING PRN PAIN MEDICATIONS, RATES PAIN 5/10, "STIFF". CALL LIGHT IN REACH. PT ON 2L OXYGEN BY POWER.
--- NOTE | 2018-03-24 21:27 | NUR ---
ASSESSMENT COMPLETE. PRN AND SCHEDULED PAIN MEDICATIONS ADMINISTERED FOR PAIN 10/13. CMS INTACT IN BILATERAL LOWER EXTREMITIES. 2 L OXYGEN VIA NC, O2 SATURATIONS WNL. FELDMAN CARE COMPLETED. FELDMAN DRAINING, WNL. IVF INFUSING WNL. NO REQUESTS AT THIS TIME. CALL LIGHT IN REACH.
--- NOTE | 2018-03-24 22:40 | NUR ---
IN ROOM TO CHECK ON PT. PT AWAKE SITTING UP IN BED. 2 L OXYGEN VIA NC, O2 SATURATIONS WNL. CALL LIGHT IN REACH.
--- NOTE | 2018-03-25 00:43 | NUR ---
IN ROOM TO CHECK ON PT. PT APPEARS TO BE SLEEPING. O2 SATURATIONS WNL ON 2 L OXYGEN VIA NC. CALL LIGHT IN REACH.
--- NOTE | 2018-03-25 02:52 | NUR ---
IN ROOM TO CHECK ON PT. PT APPEARS TO BE SLEEPING. CONTINUOUS PULSE OX- O2 SATURATIONS WNL ON 2 L NC. CALL LIGHT IN REACH.
--- NOTE | 2018-03-25 05:31 | NUR ---
ASSESSMENT COMPLETE. PT C.O. NAUSEA/ VOMITTING. PRN ZOFRAN GIVEN. PT STATES PAIN IS 4/10 AND DENIES NEED FOR PAIN MEDICATION AT THIS TIME. IVF INFUSING WNL. CMS INTACT ON BILATERAL LOWER EXTREMITIES. GOWN AND BEDDING CHANGED. NO NEEDS AT THIS TIME. PT EDUCATED TO CALL IF N/V CONTINUES. PT VERBALIZES UNDERSTANDING. CALL LIGHT IN REACH.
--- NOTE | 2018-03-25 05:44 | NUR ---
PT SLEPT THROUGHOUT MOST OF SHIFT. SCHEDULED PAIN MEDICATIONS GIVEN. PRN NAUSEA MEDICATIONS GIVEN X1. IVF INFUSING WNL. O2 SATURATIONS WNL ON 2 L NC. FELDMAN DRAINING, OLIGURIA, YELLOW URINE.
--- NOTE | 2018-03-25 07:27 | NUR ---
UPDATED MD ON LOW URINE OUTPUT. NO NEW ORDERS AT THIS TIME. MD TO FOLLOW CREATININE LABS.
--- NOTE | 2018-03-25 08:02 | NUR ---
I ASKED FOR HELP TO BOOST HER UP IN BED SO SHE COULD EAT HER BREAKFAST. NO SHOWER TODAY BUT MAYBE A SPONGE BATH.
--- NOTE | 2018-03-25 08:40 | NUR ---
ECHO IN ROOM AT THIS TIME. PATIENT REPORTS NO NAUSEA AT THIS TIME. WILL CONTINUE TO MONITOR.
--- NOTE | 2018-03-25 09:21 | NUR ---
PATIENT SITTING UP IN BED. FLUID D/C'D PER NEW ORDER. MEDICATION GIVEN. ASSESSMENT COMPLETE.
--- NOTE | 2018-03-25 09:44 | NUR ---
10MG OF OXY GIVEN DUE TO PT COMING TO WORK WITH PATIENT IN 2- MINUTES.
--- NOTE | 2018-03-25 10:30 | NUR ---
physical therapy in room. patient was able to ambulate to baker and back to chair. patient was painful with activity. once in sitting position stating pain improved. patient tolerating activity with 2 l of oxygen. sating [address] santos on low urine output. no new orders at this time.
--- NOTE | 2018-03-25 12:23 | NUR ---
DR. PRICE ROUNDED IN ROOM. UPDATED ON NEW ORDERS AND LAB. TALKED ABOUT POSSIBLE REHAB AND SWG BED FOR THERAPY. PLAN TO D/C FRANCIA MAJOR.
--- NOTE | 2018-03-25 12:55 | NUR ---
dr. santos in room to do us of patients abd.
--- NOTE | 2018-03-25 13:21 | NUR ---
plan to do ct of abd this afternoon with new results of fluid in abd per dr. santos.
--- NOTE | 2018-03-25 14:05 | NUR ---
TALKED WITH THE PT ABOUT WHAT SHE IS GOING TO BE DOING AFTER HERE. SHE STATES AT SOME POINT SHE WANTS TO RETURN HOME SO SHE CAN BE WITH HER MOTHER. SHE STATES SHE WILL TAKE CARE OF ME OR THE NEIGHBOR DOWN THE STREET WILL HELP ME. I STATED THAT FOR A WHILE SHE IS GOING TO NEED MORE HELP THAN HER MOTHER OR THE NEIGHBOR DOWN THE STREET CAN GIVE. SHE STATES YEW I REALIZE THAT AND THE ONLY CHOICE IN [place] IS [facility] RIGHT. TOLD HER THAT YES IN [place] THAT IS HER CHOICE. OFFERED [facility], [facility]URI WILSON, [facility]UM, OR [facility]. SHE STATES I USED TO WORK FOR [employer] I WILL STICK WITH [employer] HERE IN [place]. ASKED HER IF SHE HAD ANY OTHER QUESTIONS SHE STATED NO.
--- NOTE | 2018-03-25 15:16 | NUR ---
ALBUMIN COMPLETE. PATIENT DENIES NEED TO VOID AT THIS TIME. CALL LIGHT WITHIN REACH. PAIN CURRENTLY 09/12.
--- NOTE | 2018-03-25 15:40 | NUR ---
CT IN ROOM. PLAN TO TAKE PATIENT IN BED.
--- NOTE | 2018-03-25 16:30 | NUR ---
TALKED WITH LENIN FROM T AND SHE SAID THEY WILL HAVE A BED AVAILABLE SO I CAN SEND CHART NOTES. TOLD HER I WOULD SEND THEM IN THE AM, FOR DC LATER IN THE WEEK OR NEXT WEEK WHEN PT IS READY FOR TRANSFER TO SNF.
--- NOTE | 2018-03-25 17:22 | NUR ---
albumin and lr started. new order from dr. santos. updated on no uop. plan to assist pt to bsc and bladder scan after lunch.
--- NOTE | 2018-03-25 17:48 | NUR ---
PATIENT HAS RECIEVED 2 DOSES OF ALBUMIN. LR AT 200MLS FOR 1L THAN CAN BE SL. PATIENT HAS ONLY HAD 25MLS OF URINE OUTPUT. UPDATED DR. PRICE. PATIENT HAS HAD INCREASED ABD DISTENTION. US DONE. SHOWING FLUID. NEW ORDER FOR ABD CT. WAITING FOR THAT REPORT. ECHO DONE. OXY AND TYENOL FOR PAIN. NEW BRACE THAT IS TO BE WORE IF PATIENT IS UP AND AWAKE. OKAY TO TAKE OFF WHEN SLEEPING. FRANCIA D/C'Te. MAXIMUS ORDERED FOR HEART BURN.
--- NOTE | 2018-03-25 18:30 | NUR ---
PATIENT STARTED VOMITING WHEN MOVING TO BSC. PATIENT WAS UNABLE TO VOID. CONTINUE TO VOMIT. UPDATED DR. PRICE. PLAN FOR PLACEMENT OF NG. NG WAS PLACED WITH 3 NURESES. VERY HARD NG PLACEMENT. X RAY CALLED. CONFIRMED WITH AIR PUSH AND ABLE TO PULL BACK GASTRIC CONTENT. UPDATED PATIENT ON CARE
--- NOTE | 2018-03-25 19:05 | NUR ---
BEDSIDE REPORT RECEIVED FROM CATRACHITO AHUMADA. PT LYING IN BED, HOB ELEVATED. NGT TO LOW INT SUCTION, DRAINING BROWN DRAINAGE. PT ON 3L OXYGEN BY NC. LR INFUSING WNL. CATRACHITO AHUMADA TO BLADDER SCAN PT, MINIMAL URINE OUTPUT. PT HAS NO REQUESTS AT THIS TIME, CALL LIGHT IN LAP.
--- NOTE | 2018-03-25 19:30 | NUR ---
ngt patent l alyse, to li[place]ef[place], no c/o pain, visiting with family
--- NOTE | 2018-03-25 19:38 | NUR ---
BLADDER SCAN FOR 117. UPDATED DR. PRICE. PLAN FOR NEW ORDERS AT THIS TIME
--- NOTE | 2018-03-25 21:05 | NUR ---
PHONE CALL TO MD ANDRIA TO ORDER IV MEDICATIONS, FELDMAN ORDER.
--- NOTE | 2018-03-25 21:30 | NUR ---
PT ON TELE 10, SINUS TACHYCARDIA. FELDMAN CATHETER PLACED, STERILE FIELD MAINTAINED, DRAINING YELLOW URINE WNL. PT RATES PAIN 10/10 WITH MOVEMENT, PRN MORPHINE IV ADMINISTERED. NGT DRAINING GREEN DRAINAGE AT LOW INT. SUCTION. PT HAS CALL LIGHT IN REACH. GIVEN MOUTH SWABS FOR SORE THROAT. NO ADDL REQUESTS AT THIS TIME. PT STATES PASSING GAS.
--- NOTE | 2018-03-25 23:00 | NUR ---
VERBAL ORDER FOR PRN ATIVAN FROM , HR SINUS TACHYCARDIA 126-130 ON TELE 10. SECOND BOLUS LR INFUSING AT THIS TIME WNL. PT ASSESSMENT COMPLETE. COARSE RUL ON AUSCULTATION, LUNGS CLEAR THROUGHOUT OTHERWISE. PRN ATIVAN ADMINISTERED ORDERED. PT RATES PAIN 3/10 IN HIPS, REQUESTING TO SLEEP. BOWEL TONES ACTIVE X 4, ABD DISTENDED, FIRM, PT STATES TENDERNESS W PALPATION THROUGHOUT. REPOSITIONED IN BED WITH 2 RN ASSIST, RATES PAIN IN HIPS 5/10 WITH MOVEMENT. NGT TO LOW INT SUCTION DRAINING. PT ON 3L OXYGEN BY NC. FELDMAN DRAINING. CALL LIGHT IN REACH.
--- NOTE | 2018-03-26 00:19 | NUR ---
IN PT ROOM ASSESSING PT. FELDMAN EMPTIED 100 ML YELLOW URINE. NGT DRAINING BROWN DRAINAGE, 500 ML TOTAL OUTPUT IN CANNISTER SINCE PLACEMENT. IVF INFUSING. CALL LIGHT WITH PT.
--- NOTE | 2018-03-26 01:10 | NUR ---
REPORT GIVEN TO CATRACHITO RICHARDSON. PT TRANSFERRED TO CCU VIA HOSPITAL BED. PMO ANALYST CATRACHITO BIRCH AND DEBRA WITH PT.
--- NOTE | 2018-03-26 01:30 | NUR ---
PT TRANSFERRED TO ICU ROOM 130 FOR CONTINUED HR IN THE 130'S. DR PRICE ON UNIT. PT DENIES PAIN, IS AWAKE AND ALERT AND APPEARS CALM AND COMFORTABLE AT THIS TIME. ABDOMEN DISTENDED, NGT IN PLACE AND HOOKED UP TO LIWS, WITH BROWN THICK LOOKING DRAINAGE. HIGH PITCHED BOWEL SOUNDS NOTED, SOME COARSE SOUNDS HEARD IN BASE OF RIGHT LUNG. PT GIVEN CALL LIGHT, DENIES ANY NEEDS, WANTING TO SLEEP.
--- NOTE | 2018-03-26 02:12 | NUR ---
PT CONTINUES TO SLEEP, HR 100-105
--- NOTE | 2018-03-26 04:15 | NUR ---
ASSESSMENT DONE, BPS STILL ELEVATED 160'S/90'S, HR 120'S. NGT IN PLACE WITH THICK LIGHT BROWN DRAINAGE. PT DENIES PAIN OR NEEDS, ASSISTED WITH REPOSITIONING.
--- NOTE | 2018-03-26 06:08 | NUR ---
DR PRICE UPDATED REGARDING VS AND URINE OUTPUT. WILL RESTART PT ON METOPROLOL.
--- NOTE | 2018-03-26 07:10 | NUR ---
5MG IV LOPRESSOR GIVEN, HR WENT FRM 130 TO 110. PT REPOSITIONED UP IN BED, PAIN WITH REPOSITIONING ONLY.
--- NOTE | 2018-03-26 07:30 | NUR ---
PT WAS TRANSFERRED TO CCU LAST NIGHT AROUND 0100 FOR SUSTAINED HR IN 130'S, NEED FOR CLOSER MONITORING. BPS HAVE INCREASED UP TO 170'S/90'S, RR IN THE 20'S ON 3L/NC SPO2 95%. ABDOMINAL PRESSURES WERE TAKEN SEVERAL TIMES THROUGH THE SHIFT WITH READINGS FROM 14-17. URINE OUTPUT AVERAGE 65ML/HR. PT HAS BEEN AFEBRILE, ABDOMEN DISTENDED, NGT PUT OUT 350ML THICK BROWN LIQUID OVER 6 HOURS. IV LOPRESSOR WAS GIVEN AT THE END OF THE SHIFT AND HR WENT DOWN TO 105-110 SINUS TACH.
--- NOTE | 2018-03-26 09:20 | NUR ---
PT LAYING QUIETLY IN BED, ALERT AND ORIENTED X4 IV SITES INTACT, NO REDNESS OR SWELLING NOTED, PT DENIES PAIN WITH FLUSH. FLUSHES AND FLUIDS INFUSE EASILY. PT DAUGHTER IS AT THE BEDSIDE. PT DENIES NAUSEA, AND SOB. PT C/O 6/10 PAIN, GIVEN 2MG IV MORPHINE.
--- NOTE | 2018-03-26 11:07 | NUR ---
TALKED AGAIN WITH LENIN THIS AM. CHART NOTES BEING FAXED INCLUDING FACE SHEET, ER NOTES, ER SUMMARY, H AND P, PROG NOTES, CONSULTS, IMAGING, MEDICATIONS THESE WERE FAXED.
--- NOTE | 2018-03-26 12:21 | NUR ---
CATRACHITO BARON REQUESTED I NOT DISTURB PT-JUST GIVEN MORPHINE AND WOULD BE GOOD FOR HER TO REST. WILL FOLLOW NEEDED
--- NOTE | 2018-03-26 14:04 | NUR ---
IV SITES INTACT, NO REDNESS OR SWELLING NOTED, PT DENIES PAIN AT IV SITES. FLUIDS AND FLUSHES INFUSE EASILY. DAUGHTER IS AT BEDSIDE. PT DENIES NAUSEA, PAIN, AND SOB AT THIS TIME.
--- NOTE | 2018-03-26 15:33 | NUR ---
FORM BUILDER and RN gave pt complete bed bath, linen change. pt tolerated and was thankful. pt has no further needs at this time. call light within reach. daughter is visiting with pt.
--- NOTE | 2018-03-26 17:33 | CONS ---
[facility] [address] [place], [place] [address] Signed DATE OF CONSULTATION: 03/26/2018 CONSULTING PHYSICIAN: Jagdish Aguilera MD REQUESTING PHYSICIAN: Dr. Ulrich. PROBLEM: Abdominal distention suggestive of bowel obstruction and history of right colectomy for stage I colon cancer. HISTORY OF PRESENT ILLNESS: This 68-year-old white woman is well known to me from the recent past, having undergone right colectomy with primary anastomosis without operative complication on January 28, 2018. A right colon cancer had been noted on colonoscopy several weeks before that when she was admitted to the hospital with gastrointestinal bleeding, which was deemed most likely related to her giant duodenal ulcer. The ulcer had healed and operation on January 28 confirmed a very small flat lesion of the right colon for which right colectomy was performed with anastomosis to the right transverse colon. The patient was recently admitted to the hospital by Dr. Ulrich after she fell at home on March 22, 2018, sustaining a pelvic fracture. She was noted to have bilateral pubic symphysis fracture and a T12 compression fracture. She was noted to have bilateral lower extremity edema when I saw her in the office most recently and given her relatively recent operation, a duplex ultrasound had been performed as an outpatient showing no evidence of deep venous thrombosis. She had bilateral lower extremity edema at that time and continued to smoke. She had been admitted to the services of Dr. Coffman, hospitalist on March 22 for severe hyponatremia with a sodium level found to be 117. Since her recent hospitalization, she has had increasing creatinine level and 3rd space fluid losses. Consultation was undertaken with Dr. Webster, orthopedic surgeon regarding the pelvic fracture she sustained and weightbearing was considered reasonable given the location and stability of the fractures and although the T12 compression fracture was considered fairly substantial, a hyperextension brace was considered appropriate. Movement is accompanied by a fair amount of pain. An ultrasound of the retroperitoneum was undertaken showing no evidence of hydronephrosis. 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 Today, she had increasing distention and CT scan of the abdomen was performed, which showed marked distention of small bowel suggestive of small bowel obstruction. With the Electronically Signed By: JAGDISH AGUILERA MD 03/26/18 1733 PATIENT NAME: JENNIFER GOODE CONSULTATION DATE OF : 48 REPORT #: [id number] PHYSICIAN: JAGDISH AGUILERA MD PCP: KIMBERLI DEVLIN MD REPORT IS CONFIDENTIAL AND NOT TO BE RELEASED WITHOUT AUTHORIZATION [address] [address] Signed increasing urine output and fluid administration, but with little response to it, more urgent consultation was undertaken at the direction of Dr. Ulrich. Currently, the patient does not really feel much abdominal pain at all. She still has some pelvic pain, it is noted. A nasogastric tube has been placed, which drained about 500 mL of bilious fluid. The special note, the CT scan was performed, is now describing possible hepatic metastatic lesions, somewhat dilated common bile duct and minimal intraperitoneal fluid. It is noted that she had essentially no evidence of metastatic disease at the time of her colectomy and in particular a very small lesion. PHYSICAL EXAMINATION: GENERAL: She is chronically ill, petite white woman, who is sleeping soundly when first approach. Nasogastric tube was draining bilious fluid. Her trachea is midline. Mucous membranes are slightly moist overall and not particularly dry. CHEST: Shows normal respiratory excursion without tachypnea. ABDOMEN: Markedly distended as a "beach ball" in appearance. She shows no sign of incisional herniation. Palpation throughout the abdomen shows really no tenderness. Auscultation does show reasonably active and maybe even hyperactive bowel sounds highly suggestive of obstructive process. EXTREMITIES: Show mild edema not unlike what she had before. DIAGNOSTIC STUDIES: I reviewed the CT scan from her preoperative state from colectomy as well as her recent CT scan, which confirms markedly dilated small bowel loops and a very dilated stomach (all this prior to nasogastric tube placement). In addition, I reviewed her KUB, which shows nasogastric tube in the stomach itself and well positioned. It is quite uncertain as regards her abdominal distention. Given her pelvic and spinal compression fracture, concern is always maintained for possible ileus, which is not a rare accompaniment of such injuries. On the other hand, the extent of dilation and the active bowel sounds noted clinically are more consistent with bowel obstruction proper. I am quite surprised and possibly slightly dubious of the idea of metastatic disease to the liver given her very small lesion to begin with. The possibility of another focus of neoplasm causing metastatic disease must be considered as well. As it is well established, she is a longstanding smoker and she does have atelectatic changes on CT scan of the left lower lobe, though no sign of neoplasm proper. For now, I have recommended and I have discussed with Dr. Ulrich, the plan for continued nasogastric tube decompression. IV fluids will be administered as they have been and I would not be too concerned to additionally administer Lasix if true oliguria is developing. If there are metastatic lesions to the liver in particular from the colon, Electronically Signed By: JAGDISH AGUILERA MD 03/26/18 0128 PATIENT NAME: JENNIFER GOODE CONSULTATION DATE OF : 48 REPORT #: [id number] PHYSICIAN: JAGDISH AGUILERA MD PCP: KIMBERLI DEVLIN MD REPORT IS CONFIDENTIAL AND NOT TO BE RELEASED WITHOUT AUTHORIZATION [address] [id number] [facility] [place] [address] Signed a CEA level would commonly be elevated not invariably, so of course. This may be worth checking as well. A consideration for a Gastrografin related contrast study to assess for site of obstruction or stimulation of bowel will be revisited tomorrow (earlier this a.m.). MD ANSON Palmer/THIAGO /[id number] Copies: ~ Electronically Signed By: JAGDISH AGUILERA MD 03/26/18 1733 PATIENT NAME: JENNIFER GOODE CONSULTATION DATE OF : 48 REPORT #: [id number] PHYSICIAN: JAGDISH AGUILERA MD PCP: KIMBERLI DEVLIN MD REPORT IS CONFIDENTIAL AND NOT TO BE RELEASED WITHOUT AUTHORIZATION
--- NOTE | 2018-03-26 17:53 | NUR ---
IV SITES INTACT, NO REDNESS OR SWELLING NOTED, PT DENIES PAIN AT EITHER SITE. PT DENIES PAIN, NAUSEA, AND SOB AT THIS TIME. PT IS COOPERATIVE, SLIGHTLY DROWSY AT THIS TIME.
--- NOTE | 2018-03-26 19:30 | NUR ---
PT AWAKE IN BED, DENIES NEEDS AT THIS TIME. VISITING WITH HER MOTHER.
--- NOTE | 2018-03-26 20:30 | NUR ---
IN TO DO ASSESSMENT, PTS MOTHER LEAVING FOR THE NIGHT. PT REQUESTS PAIN MEDICINE, 2MG IV MORPHINE GIVEN FOR PAIN 10/10 IN BACK AND HIPS WHEN SHE MOVES SELF IN BED. NGT SECURED WELL, DRAINING BROWN LIQUID. FELDMAN PATENT DRAINING YELLOW CLEAR URINE, ADEQUATE AMOUNT. IV LOPRESSOR GIVEN 7.5MG, WILL MONITOR PTS BPS AND HR.
--- NOTE | 2018-03-26 22:55 | NUR ---
PT RESTING WITH EYES CLOSED, RESP EVEN UNLABORED, HR 105.
--- NOTE | 2018-03-27 02:50 | NUR ---
PT SLEEPING, OXYGEN COMES OUT OF NOSE SOMETIMES AND SPO2 GOES DOWN TO 81%, BACK UP TO 96% WHEN REPLACED.
--- NOTE | 2018-03-27 04:30 | NUR ---
PT CALLS TO SAY SHE ACCIDENTALLY PULLED NGT OUT.
--- NOTE | 2018-03-27 05:49 | NUR ---
PT AWAKE IN BED, LAB IN TO DRAW.
--- NOTE | 2018-03-27 07:00 | NUR ---
PT HAD A FAIR NIGHT, NGT WAS PULLED OUT AROUND 0400 AM. HR WAS DOWN FROM LAST NIGHT 90'S-110. BPS ALSO LOWER TONIGHT. URINE OUTPUT AVERAGE 50ML/HR, NGT HAD PUT OUT APROX 50ML OVER 10 HOURS ABDOMEN SOFTER LESS DISTENDED. ABD XR DONE THIS MORNING. WAS ABLE TO SLEEP WELL THROUGH THE NIGHT ALTHOUGH SHE IS VERY PAINFUL WITH ANY MOVEMENT, REQUIRED MORPHINE 2MG ONCE. PT STILL DESATURATES DOWN TO 80% WHEN O2 REMOVED, WAS ON 4L AND WAS ABLE TO TURN THAT DOWN TO 3L/NC WITH SPO2 94%.
--- NOTE | 2018-03-27 10:22 | NUR ---
PATIENT'S FAMILY ARRIVES AT THIS TIME. PT RESTING IN BED AT THIS TIME.
--- NOTE | 2018-03-27 11:41 | NUR ---
PATIENT HAD A LARGE SOFT BM IN THE BED BUT WAS UNAWARE OF HAVING THIS. PATIENT HELPED UP TO CHAIR WITH 2 PERSON ASSIST. PT PAINFUL UPON MOVING, BUT DID MOVE MODERATELY WELL. PT IS ALLOWED TO BE WEIGHT BEARING STATUS. PT NOT WANTING TO WEAR HER BACK BRACE AT THIS TIME. PT HAS HAD VISITORS THIS AM. PT ALLOWED TO HAVE VERY SMALL AMOUNTS OF ICE CHIPS AND NGT TO NOT BE REPLACED. PT TAKEN OFF TELE AT THIS TIME WELL. CONTINUE TO MONITOR. PT TO TRANSFER TO MED/SURG.
--- NOTE | 2018-03-27 12:03 | NUR ---
DR. AGUILERA IN TO SEE PATIENT. PT TO CONTINUE IVF AT 125 ML/HR. PT'S MOTHER IN ROOM WELL. PT REQUESTING PAIN MEDICATION AT THIS TIME FOR 4/10 PAIN IN HER LEFT SIDE LOWER BACK AND ACROSS HER BOTTOM. PT TO BE GIVEN IV MORPHINE FOR PAIN.
--- NOTE | 2018-03-27 12:04 | NUR ---
OXYGEN TURNED DOWN TO 3 L AT THIS TIME. SP02 IS 100% ON 4 L.
--- NOTE | 2018-03-27 13:45 | NUR ---
RECIEVED PT FROM CCU VIA CHAIR. REPORTS HIP PAIN. PRN MORPHINE GIVEN. ASSESSMENT COMPLETED. 3L NC IN PLACE. SATURATIONS 100%. LR @125 INFUSING. CALL LIGHT IN REACH. VITALS STABLE.
--- NOTE | 2018-03-27 16:58 | NUR ---
FAMILY MEMBER APROVED CALLED FOR UPDATE ON PT. TLAKED ABOUT PLAN OF CARE. TRANSFERED TO TALK TO PT.
--- NOTE | 2018-03-27 18:00 | NUR ---
ORDER RECEIVED TO CHANGE LR TO 75ML/HR DONE.
--- NOTE | 2018-03-27 18:37 | NUR ---
PT SATTING AT 97% ON 2L NC. TITRATE TO 1L. WILL CONT TO MONITOR.
--- NOTE | 2018-03-27 18:54 | NUR ---
CAME FROM CCU TODAY.
--- NOTE | 2018-03-27 20:00 | NUR ---
RECEIVED REPORT AT 1900, FOUND PT IN BED AWAKE WITH VISITOR AT BEDSIDE. PT HAD NO NEW CONCERNS OR NEEDS AT THAT TIME.
--- NOTE | 2018-03-27 21:45 | NUR ---
PT CALLED FOR ME TO PLUG IN HER I PADS AND LAP TOP. BEDSIDE TABLE AND CALL LIGHT IN REACH. SHE NEEDS NOTHING MORE AT THIS TIME.
--- NOTE | 2018-03-27 22:00 | NUR ---
SPB AT 179 WHICH IS AN HOURS AFTER IV 7.5MG LOPRESSOR WAS GIVEN. THIS MAY HAVE BEEN DUE TO PAIN. MORPHINE 2MG WAS ALSO GIVEN. WILL CONTINUE TO MONITOR AT THIS TIME. ABD SOUNDS ARE PRESENT, ABD IS MODERATLY DISTENDED BUT SOFT TO TOUCH THOUGH TENDER. ALL LOBES ON RIGHT HAVE INSPIRATORY AND EXPIRATORY WHEEZING PRESENT, ALL LOBES ON LEFT HAVE EXPIRATORY WHEEZING PRESENT. PT AT THIS TIME IS ON 2L O2 NC. PUBIS SYMPHYSIS AREA HAS NO EDEMA OR BRUISING PRSENT. NO LEG EDEMA NOTED EITHER. NO OTHER CONCERNS NOTED AT THIS TIME.
--- NOTE | 2018-03-27 23:15 | NUR ---
BP AT THIS TIME IS 152/94, HR IS 120'S SUSTAINED AT THIS TIME. PT ALSO HAS PAIN 5/10, 2MG IV MORPHINE GIVEN AGAIN. WILL CONTINUE TO MONITOR AND THEN CALL MD IS HR IS STILL HIGH >120.
--- NOTE | 2018-03-28 | NUR ---
HR IS 115-122. PAIN IS 2/10. WILL CONTINUE TO MONITOR.
--- NOTE | 2018-03-28 01:51 | NUR ---
MD DIANA WAS CALLED DUE TO INCRESED SBP AND HR 1 HOUR AFTER IV LOPRESSOR WAS GIVEN. NO NEW ORDERS WERE GIVEN. WILL CONTINUE TO MONITOR.
--- NOTE | 2018-03-28 04:02 | NUR ---
PT IS SLEEPING AT THIS TIME.
--- NOTE | 2018-03-28 05:20 | NUR ---
HR THIS SHIFT HAS BEEN OF SOME CONCERN. HR WAS IN THE 120'S FOR A WHILE EVEN AFTER RECEIVING DOSES OF SCHEDULED IV LOPRESSOR. BP'S AT TIMES WERE ELEVATED WELL. MD DIANA IS AWARE. PT SO FAR HAS RECEIVED MORPHINE 2MG IV X2. ALL LOBES HAVE WHEEZING PRESENT, ABD SOUNDS ARE PRESENT, ABD HAS MODERATED DISTENTION PRESENT. PT IS TOLERATING CLEAR LIQUIDS SO FAR. WILL CONTINUE TO MONITOR. PT OVERALL STATED THAT SHE IS FEELING BETTER.
--- NOTE | 2018-03-28 05:46 | NUR ---
VITALS AND I&OS DONE AND CHARTED. BEDSIDE TABLE AND CALL LIGHT IN REACH.
--- NOTE | 2018-03-28 07:37 | NUR ---
RECIEVED REPORTFROM CUSTOMER TRAINING SPECIALIST RN. PT IN BED AWAKE. DENIES NEEDS OR PAIN AT THIS TIME. LR @ 75ML.HR INFUSING.
--- NOTE | 2018-03-28 08:18 | NUR ---
PATEINT IN BED, BOARD UPDATED, BREAKFAST PRESENT BUT SHE SAID SHE DIDNT WANT TO EAT JUST YET SHE WASNT READY, THIS DICE MAKER TOLD HER TO CALL IF SHE NEEDED ANYTHING AT ALL, SHE NEEDED NO OTHER ASSISTANCE AT ALL
--- NOTE | 2018-03-28 09:16 | NUR ---
INCREASED B/P. DR DIANA NOTIFIED. NO NEW ORDERS.
--- NOTE | 2018-03-28 09:56 | NUR ---
PATEINT IN BED, SHE DID NOT EAT MUCH BREAKFAST, SHE SAID SHE NEEDED NOTHING ELSE AT THE TIME WILL RECHECK SOON
--- NOTE | 2018-03-28 13:28 | NUR ---
ROUNDED WITH DR DIANA. PLAN OF CARE DISCUSSED. NEW ORDERS RECIEVED. DC'D IV FLUIDS AND FELDMAN CATHETER REMOVED. ALL QUESTIONS ANSWERED.
--- NOTE | 2018-03-28 14:33 | NUR ---
PT OOB TO BATHROOM WITH SBA WITH FWW. VOIDED 200ML. BACK TO BED. REPORTING 5/10 PAIN. OXYCODONE PRN GIVEN. PT IN BED AT THIS TIME. CALL LGT IN REACH. DENIES OTHER NEEDS.
--- NOTE | 2018-03-28 16:22 | NUR ---
PT REPORTING 10/10 PAIN. INCREASED B/P, INCREASED HR. 2MG MORPHINE GIVEN. DR DIANA NOTIFIED. ORDERS TO REASSESS IN AN HOUR.
--- NOTE | 2018-03-28 17:56 | NUR ---
REASSESSED BP. BACK WNL. HR 77. PAIN 09/12. CALL LIGHT IN REACH.
--- NOTE | 2018-03-28 17:58 | NUR ---
PT HAD GREAT DAY. GREAT URINE OUTPUT. NO N/V. ACTIVE BOWEL TONES. LIU DRAIN PULLED. NO PAIN. 1 600MG MOTRIN THIS SHIFT. WALKED 3 TIMES IN HALLS. 1L NC STILL IN PLACE. LASIX GIVEN.
--- NOTE | 2018-03-28 18:03 | NUR ---
PT OUT AMBULATING HALLS. 2L NC IN PLACE.
--- NOTE | 2018-03-28 20:00 | NUR ---
RECEIVED REPORT AT 1900, FOUND PT IN ROOM WITH VISITOR AT BEDSIDE. PT HAD NO NEEDS OR CONCERNS AT THAT TIME.
--- NOTE | 2018-03-28 21:38 | NUR ---
VITALS AND I&OS DONE AND CHARTED. FRESH ICE FOR WATER. BEDSIDE TABLE AND CALL LIGHT IN REACH. PT NEEDS NOTHING ELSE AT THIS TIME.
--- NOTE | 2018-03-28 22:00 | NUR ---
HR IS ELEVATED IN THE 110-120 RANGE SBP AT 150. WILL CONTINUE TO MONITOR. 2MG OF MORPHINE GIVEN SO FAR. ALL LOBES ARE CLEAR BUT DIMINISHED AT THIS TIME. ABD SOUNDS PRESENT AND PT IS TOLERATING A REGULAR DIET WELL IT SEEMS. MINIMAL BILATERAL ANKLE EDMEA NOTED.
--- NOTE | 2018-03-28 23:40 | NUR ---
IN PT ROOM FOR MEDICATION ADMINISTRATION, SBA WITH FWW TO RESTROOM FOR VOID AND BACK TO BED. PT RATES PAIN 10/10 WITH AMBULATION, PRN PAIN MEDICATION ADMINISTERED. CALL LIGHT IN REACH.
--- NOTE | 2018-03-28 23:42 | NUR ---
VITALS DONE PER REQUEST OF CATRACHITO BAUTISTA. HELPED PT TO BATHROOM AND BACK TO BED WITH HER FWW. BEDSIDE TABLE AND CALL LIGHT IN REACH. PT NEEDS NOTHING ELSE AT THIS TIME.
--- NOTE | 2018-03-29 | NUR ---
PT IS AWAKE IN BED . NO CONCERNS OR NEEDS AT THIS TIME.
--- NOTE | 2018-03-29 01:00 | NUR ---
ASSUMED CARE OF PT. RECEIVED REPORT FROM CATRACHITO RICHARDSON. PT IN BED, APPEARS TO BE ASLEEP. PT ON ROOM AIR. PT RECEIVING PRN PAIN MEDICATIONS. CALL LIGHT IN REACH.
--- NOTE | 2018-03-29 01:36 | NUR ---
CHECKED ON PT, APPEARS TO BE SLEEPING, EYES CLOSED, BREATHING NON-LABORED ON 2L OXYGEN BY NC. CALL LIGHT NEXT TO PT.
--- NOTE | 2018-03-29 03:57 | NUR ---
IN ROOM TO CHECK ON PT. PT APPEARS TO BE SLEEPING, BREATHING EVEN AND UNLABORED. 2 L OXYGEN VIA NC. CALL LIGHT NEXT TO PT.
--- NOTE | 2018-03-29 06:10 | NUR ---
ASSESSMENT COMPLETE. PT VERY DROWSY. PT UP TO BSC WITH 2 PERSON SBA AND FWW TO VOID X1. PT RETURNED TO BED. PT DENIES NUMBNESS OR TINGLING IN HER BILATERAL LOWER EXTREMITIES. MOTTLING NOTED IN BILATERAL KNEES. 1+ PITTING EDEMA IN BILATERAL LOWER EXTREMITIES. COARSE LUNG SOUNDS THROUGHOUT. BOWEL TONES ACTIVE, NO TENDERNESS ON PALPATION. PEDAL PULSES STONG BILATERALLY. PT STATES PAIN WAS 10/10 WITH MOVEMENT, PT REPOSITIONED. LAB IN ROOM.
--- NOTE | 2018-03-29 06:43 | NUR ---
2 LITERS OXYGEN VIA NC. PAIN WITH MOVEMENT AND AMBULATION. PRN PAIN MEDICATIONS ADMINISTERED. BRACE WITH AMBULATION. SBA WITH FWW. PEDAL PULSES STRONG BILATERALLY, SENSATION INTACT IN BILATERAL EXTREMITIES. MOTTLING NOTED IN BILAT KNEES. BOWEL TONES ACTIVE.
--- NOTE | 2018-03-29 08:00 | NUR ---
PT SLEEPING COMFORTABLY AT THIS TIME, COMPLETELY ASLEEP. I STILL NEED TO GET CONSENT FOR MRI, GIVE MEDS AND COMPLETE FULL ASSESSMENT BUT I WILL DO THIS WHEN PT MORE AWAKE AND ALERT SOON. PT'S OXYGEN IN PLACE RUNNING 2 L/MIN VIA NC. CALL LIGHT WITHIN REACH. FALL PRECAUTIONS IN PLACE. WILL CONTINUE TO MONITOR.
--- NOTE | 2018-03-29 08:36 | NUR ---
Renal function improved, enoxaparin increased to 40mg sub-q daily
--- NOTE | 2018-03-29 09:45 | NUR ---
PT AWAKE, ALERT, A/O X4 BUT FORGETFUL AND NEEDS REINFORCEMENT OF EDUCATION. PT VERY PLEASANT, CALM AND COOPERATIVE WITH SOME C/O LOWER BACK PAIN. PT HAS NO N/V, NO SOB AND NO BREATHING ISSUES. ASSESSMENT COMPLETED AND PT HAS COURCE, WET CRACKLES THROUGHOUT ALL LOBES. PT HAS A FREQUENT, MOIST COUGH. SHE STATES THIS IS PRODUCTIVE BUT SHE SWALLOWS HER SPUTUM, THEREFORE I HAVE NOT ASSESSED THIS. SHE IS WEARING 2 L/MIN O2 VIA NC. SALINE LOCKED. RUE LIMB RESTRICTION. NPO AT THIS TIME FOR TESTING LATER TODAY. MILD ABDOMINAL DISTENTION AND FIRMNESS. PT X1 ASSIST WITH WALKER. PT UNSTEADY AND WEAK ON HER FEET. MEDICATIONS GIVEN. PT HAS NO QUESTIONS OR CONCERNS AT THIS TIME. CALL LIGHT WITHIN REACH. FALL PRECAUTIONS IN PLACE. WILL CONTINUE TO MONITOR.
--- NOTE | 2018-03-29 11:05 | NUR ---
PT NO LONGER GETTING MRI PER DR. DIANA AND IS INSTEAD GETTING ABD/CHEST CT. PT HAS COMPLETED HER FIRST 15 ML GASTROGAFIN AT THIS TIME. WILL GIVE SECOND DOSE IN ONE HOUR. CT INFORMED OF HER COMPLETION OF FIRST DRINK AT THIS TIME. PT STATES HER BACK PAIN HAS DECREASED TO A 3 OUT OF 10 FROM A 6. OXYCODONE EFFECTIVE AND PT STATES HER PAIN IS TOLERABLE. PER COMPUTATIONAL MATHEMATICIAN, PT HAS HAD 2 BM'S THIS MORNING. EDUCATION GIVEN ON NEW TEST THAT WILL BE COMPLETED. PT STATES HER UNDERSTANDING AND HAS NO FURTHER QUESTIONS OR CONCERNS. CALL LIGHT WITHIN REACH. FALL PRECAUTIONS IN PLACE. WILL CONTINUE T0 MONITOR.
--- NOTE | 2018-03-29 12:20 | NUR ---
PT HAS JUST COMPLETED 2ND DOSE OF GASTROGRAFIN AT THIS TIME; CT HAS BEEN NOTIFIED AND STATED THEY WILL BE COMING TO GET PT AROUND 1330. PT STILL VERY PLEASANT, CALM AND COOPERATIVE. NO PAIN AT THIS TIME. PT STATES HER UNDERSTANDING ON PLAN. CALL LIGHT WITHIN REACH. WILL CONTINUE TO MONITOR.
--- NOTE | 2018-03-29 13:10 | NUR ---
PT OFF UNIT AT THIS TIME FOR ABD/CHEST CT
--- NOTE | 2018-03-29 14:19 | NUR ---
PT WAS SITTING IN WHEELCHAIR, WAITING FOR STAFF TO TAKE HER FOR A "TEST" SHE PUT IT. PT SEEMS TO BE COPING WITH HER DECLINING HEALTH, REQUESTED PRAYER, WILL FOLLOW NEEDED
--- NOTE | 2018-03-29 14:23 | NUR ---
PT BACK FROM CT; SHE'S STATING SHE'S HAVING SOME GENERALIZED PAIN THROUGHOUT; PRN MED GIVEN. PT ENJOYING LUNCH WITH A VISITOR AT THE BEDSIDE. NO OTHER QUESTIONS OR CONCERNS AT THIS TIME. CALL LIGHT WITHIN REACH. FALL PRECAUTIONS IN PLACE. WILL CONTINUE TO MONITOR.
--- NOTE | 2018-03-29 16:36 | NUR ---
PT STATES HER PAIN IS GONE AFTER GETTING HER PRN OXY A BIT AGO. SHE REMAINS COMFORTABLE IN BED AND WATCHING TV AT THIS TIME. NO QUESTIONS OR CONCERNS. CALL LIGHT WITHIN REACH. FALL PRECAUTIONS IN PLACE. I WILL CONTINUE TO MONITOR.
--- NOTE | 2018-03-29 18:30 | NUR ---
PT VS AND CONDITION STABLE TODAY. SOME C/O PELVIC/GENERALIZED PAIN BUT WELL CONTROLLED WITH PRN OXYCODONE. PT WAS NPO THROUGHOUT THE MORNING BEFORE SHE TOOK A TOTAL OF 30 ML OF GASTROGRAFIN FOR HER ABD/CHEST CT SCAN. THAT SCAN WAS COMPLETED THIS AFTERNOON. PT REMAINS ON 2 L/MIN 02 VIA NC. LUNG SOUNDS IMPROVED AFTER GETTING AM DOSE OF IV LASIX. 3 BM TODAY. SOME WEAKNESS BUT PT FREQUENTLY AMBULATED WITH BRACE IN PLACE TO AND FROM RESTROOM. R LIMB RESTRCTION IN PLACE. ADEQUATE PO INTAKE AND APPETITE. PT HAS NO QUESTIONS OR CONCERNS AT THIS TIME. CALL LIGHT WITHIN REACH. FALL PRECAUTIONS IN PLACE. WILL CONTINUE TO MONITOR.
--- NOTE | 2018-03-29 19:04 | NUR ---
RECIEVED REPORT FROM CATRACHITO HOBSON. PT AWAKE, LAYING IN BED, TALKING WITH VISITORS IN ROOM. PT ON 2 LITERS OXYGEN, NC. PT JUST RETURNED TO BED FROM AMBULATION AND RATED PAIN 10/10. RN TO MEDICATE. CALL LIGHT IN REACH.
--- NOTE | 2018-03-29 19:48 | NUR ---
PRN PAIN MEDICATION ADMINISTERED FOR 10/10 PAIN WITH MOVEMENT IN HIPS AND BACK, PT STATES PAIN IS 5/10 AT REST. PT LYING IN BED, 2L OXYGEN BY NC ON. NO ADDL REQUESTS.
--- NOTE | 2018-03-29 21:00 | NUR ---
ASSESSMENT COMPLETE. SENSATION INTACT IN BILATERAL LOWER EXTREMITIES. 1+ PITTING EDEMA IN BILATERAL LOWER EXTREMITIES. PT RATES PAIN 5/10 AT THIS TIME, PAIN INCREASES WITH AMBULATION. SBA WITH FWW TO RESTROOM FOR BM X1. PT RETURNED TO BED IVF INFUSING WNL. CALL LIGHT IN REACH.
--- NOTE | 2018-03-29 23:29 | NUR ---
IN ROOM TO CHECK ON PT. PT AWAKE WATCHING TV. PT STATES PAIN IS 4/10 AT THIS TIME, DENIES NEED FOR PAIN MEDICATION. IVF INFUSING WNL. 2 L OXYGEN NC ON. CALL LIGHT IN REACH.
--- NOTE | 2018-03-30 01:52 | NUR ---
IN ROOM TO CHECK ON PT. PT AWAKE. DENIES NEEDS AT THIS TIME. CALL LIGHT NEXT TO PT.
--- NOTE | 2018-03-30 02:54 | NUR ---
RESPONDED TO CALL LIGHT. PT REQUESTS TO VOID. SBA WITH FWW TO [facility] FOR BM X1, ATTENDS CHANGED, RETURNED TO BED. PRN PAIN MEDICATION ADMINISTERED FOR PAIN 01/12. ASSESSMENT COMPLETE. SENSATION INTACT IN BILATERAL LOWER EXTREMITIES. 1+ PITTING EDEMA BLE. 2 LITERS OXYGEN NASAL CANNULA ON PT. NO NEEDS AT THIS TIME. CALL LIGHT IN REACH.
--- NOTE | 2018-03-30 05:01 | NUR ---
IN ROOM TO REASSESS PAIN. PT APPEARS TO BE SLEEPING, EYES CLOSED, UNLABORED BREATHING. CALL LIGHT NEXT TO PT. 2 L NC ON PT.
--- NOTE | 2018-03-30 05:15 | NUR ---
PT SLEPT THROUGHOUT MOST OF SHIFT. UP TO RESTROOM/BSC WITH SBA AND FWW. PAIN WELL CONTROLLED WITH PRN PAIN MEDICATIONS. PT ON 2 L NC. IVF INFUSING WNL. SENSATION INTACT IN BILATERAL LOWER EXTREMITIES, PEDAL PULSES STRONG. 1+ PITTING EDEMA IN BILATERAL LOWER EXTREMITIES. LUNG SOUNDS DIMINISHED AND CLEAR. USES CALL LIGHT APPROPRIATELY.
--- NOTE | 2018-03-30 06:08 | NUR ---
IN ROOM TO ADMIN MORNING MEDICATIONS. PT ASLEEP WHEN ENTERING ROOM, AWAKENS EASILY, PT CONFUSED ON TIME OF DAY. IVF LEAKING FROM IV, IV DC'D. FLUIDS INFUSING THROUGH 2ND IV SITE NOW. LAB IN ROOM.
--- NOTE | 2018-03-30 06:55 | NUR ---
IN ROOM TO ASSIST PT TO BSC WITH SBA AND FWW TO VOID AND BM. PT BACK TO BED. PAIN MEDICATION ADMINISTERED FOR 1010 PAIN. CALL LIGHT IN REACH.
--- NOTE | 2018-03-30 08:30 | NUR ---
PT SITTING UP IN BED EATING BREAKFAST AT THIS TIME. PT PLEASANT, CALMD AND COOPERATIVE AND STATES SHE IS COMFORTABLE AND HAVING NO PAIN. NO N/V. NO SOB OR BREATHING ISSUES. PT'S LUNG SOUNDS MUCH IMPROVED AT THIS TIME COMPARED TO YESTERDAY AM WHEN THIS RN WAS TAKING CARE OF PT. 2 L/MIN O2 STILL VIA NC ON PT. NS 3% COMPLETE AT THIS TIME-- I SALINE LOCKED PT'S PIV. MEDS GIVEN. ASSESSMENT COMPLETED. X1 ASSIST WITH BRACE IN PLACE AND WITH WALKER. PT HAS NO QUESTIONS OR CONCERNS AT THIS TIME. CALL LIGHT WITHIN REACH. FALL PRECAUTIONS IN PLACE. WILL CONTINUE TO MONITOR.
--- NOTE | 2018-03-30 09:31 | NUR ---
PATIENT FINISHED BREAKFAST, FACE WASHED, SAY SHE VERY TIRED. FRESH WATER GIVEN. CALL LIGHT IN REACH, NO OTHER NEEDS AT THIS TIME. VITALS DONE. I & OS DONE.
[2018-03-30] MEDS ORDERED: OXYCODONE HCL5 MG PO (10:09)
[2018-03-30] MEDS ORDERED: SENNA LAX8.6 MG PO (10:11)
[2018-03-30] MEDS ORDERED: SODIUM CHLORIDE1 GM PO (10:11)
--- NOTE | 2018-03-30 10:53 | NUR ---
FAXED ORDERS TO [facility]. TALKED WITH LENIN AT [facility]. RECIEVED FAX CONFIRMATION.
--- NOTE | 2018-03-30 10:55 | NUR ---
PT FINISHING UP WITH PT AT THIS TIME. SHE'S GETTING BACK INTO BED AT THIS TIME AND STATES HER PAIN IS 10 OUT OF 10, REQUESTING HER PRN OXY. PT'S COUGH SOUNDS MORE WET AND CONGESTED COMPARED TO THIS MORNING, PRESUMABLY LOOSENING UP FROM ACTIVITY. COUGH AND DEEP BREATHING ENCOURAGED. WILL RETURN WITH PAIN MEDICATIONS. CALL LIGHT WITHIN REACH.
--- NOTE | 2018-03-30 12:00 | NUR ---
PT RESTING IN BED WATCHING TV WITH TWO VISITORS AT THE BEDSIDE. NO QUESTIONS OR CONCERNS. PT STATES IMPROVED PAIN AFTER GETTING HER OXYCODONE. PT AWAITING MRI. CALL LIGHT WITHIN REACH. WILL CONTINUE TO MONITOR.
--- NOTE | 2018-03-30 13:05 | NUR ---
PT TAKEN OFF UNIT AT THIS TIME FOR BRAIN MRI
--- NOTE | 2018-03-30 13:57 | NUR ---
PT HAS RETURNED TO ROOM FROM BRAIN MRI AT THIS TIME. CALL LIGHT WITHIN REACH. WILL CONTINUE TO MONITOR.
== END 2018-03-30 15:05 | disposition home or self-care (01) | DRG 535 ==
LOC: ED 10:15 → MS 13:53 → CCU 03-26 01:11 → MS 03-27 13:25
PROVIDERS: ADMIT Internal Medicine
DX: S32.592A Other specified fracture of left pubis, initial encounter for closed fracture (principal); J96.01 Acute respiratory failure with hypoxia; M48.54XA Collapsed vertebra, not elsewhere classified, thoracic region, initial encounter for fracture; K56.7 Ileus, unspecified; E22.2 Syndrome of inappropriate secretion of antidiuretic hormone; K76.9 Liver disease, unspecified; N28.1 Cyst of kidney, acquired; R79.89 Other specified abnormal findings of blood chemistry; R53.81 Other malaise; I10 Essential (primary) hypertension; K21.9 Gastro-esophageal reflux disease without esophagitis; F39 Unspecified mood [affective] disorder; F17.210 Nicotine dependence, cigarettes, uncomplicated; K82.8 Other specified diseases of gallbladder; W19.XXXA Unspecified fall, initial encounter
CPT/HCPCS: 36415; 51701; 51702; 70553; 71045; 71260; 72100; 72170; 74018; 74176; 74177; 76770; 80048; 80053; 80076; 81001; 82378; 82550; 82607; 82728; 82746; 82977; 83540; 83605; 83615; 83735; 83880; 84100; 84300; 84466; 84484; 85025; 93005; 93010; 93306; 94640; 94667; 94668; 96360; 97116; 97162; 97166; 97530; 97535; 99285; 99406; A9579; J1650; J2060; J2270; J2405; J3010; J3475; J7030; J7040; J7120; P9047; Q9967

== ENCOUNTER 2019-07-28 12:49 | Day surgery (SDC) | payer MEDICARE ==
[~2019-07-28 12:49] MED LIST changes: +ACETAMINOPHEN650 M1 PO; +CALCIUM600 MG PO; +CEFPODOXIME PR200 MG PO; +CELEXA20 MG PO; +DULCOLAX10 MG PR; +FLEET ENEMA133 ML PR; +FUROSEMIDE20 MG PO; +HYDROCODON-ACE1 EA10 PO; +IBUPROFEN600 MG PO; +K-TAB ER20 MEQ PO; +LEVOFLOXACIN500 MG PO; +LISINOPRIL-HCT1 EACH PO; +LOPERAMIDE2 MG PO; +MAGOX 400400 MG PO; +MEGESTROL400 MG/10 PO; +MILK OF MA400 MG/5 M PO; +MULTI-DAY PLUS1 EAC1 PO; +NEURONTIN100 MG PO; +OXYCODONE HCL5 MG PO; +POTASSIUM CHLO20 ME1 PO; +SENNA LAX8.6 MG PO; +SODIUM CHLORIDE1 GM PO; +ULTRAM50 MG PO; +ZESTRIL30 MG PO
--- NOTE | 2019-07-28 14:23 | NUR ---
07/28/19 1423 Bhavna Padilla 1417 PT ARRIVED TO PACU ON 3L VIA NC, RESP EVEN AND UNLABORED. PT WAKES EASILY TO VERBAL STIMULI. PT DENIES PAIN AND NAUSEA. 1422 PT ENCOURAGED TO PASS GAS/AIR. PT ASLEEP OFF AND ON.
--- NOTE | 2019-07-29 18:38 | OR ---
[facility] [address] [place], [place] [address] Signed DATE OF OPERATION: 07/28/2019 SURGEON: Jagdish Aguilera MD PREOPERATIVE DIAGNOSIS: History of right colectomy for colon cancer greater than one year ago. POSTOPERATIVE DIAGNOSIS: Extensive diverticular changes of sigmoid and left colon, otherwise normal. PROCEDURE: Total colonoscopy to ileocolic anastomosis. ANESTHESIA: Intravenous sedation, fentanyl 100 mcg, Versed 3.5 mg. INDICATION: This 69-year-old white woman is very debilitated and now a patient of Dr. Rogelio Diana. She underwent right colectomy by me about a year ago for colon cancer. She has also undergone breast cancer treatment in the past. In September of 2018, she underwent laparoscopies for biopsy of suspicious lesions of the liver and the findings non-confirmatory but still suspicious. Her breast cancer problem was in 2006 resulted in right modified radical mastectomy. She has had no symptoms of bleeding diarrhea or constipation related to colon and is here for surveillance colonoscopy. Her right colectomy was on January 28, 2018. FINDINGS: The prep was good. Complete colonoscopy was undertaken to the ileocolic anastomosis. The anastomosis was widely patent. There were extensive diverticular changes of sigmoid and left colon, making it a challenging procedure, but it was accomplished safely and was well tolerated. There was no sign of polyps or cancer. Only diverticulosis. DESCRIPTION OF PROCEDURE: The patient was brought to the endoscopy suite and placed in lateral decubitus position, given judicious intravenous sedation with full cardiopulmonary monitoring. Digital rectal examination was normal. An Olympus video colonoscope was passed in the rectum and manipulated through the sigmoid where there were numerous diverticula. With patient's perseverance, the scope was ultimately manipulated through this area and beyond the splenic flexure to the area Electronically Signed By: JAGDISH AGUILERA MD 07/29/19 1838 PATIENT NAME: JENNIFER GOODE OPERATIVE REPORT DATE OF : 48 REPORT #: [id number] PHYSICIAN: JAGDISH AGUILERA MD PCP: ROGELIO DIANA MD REPORT IS CONFIDENTIAL AND NOT TO BE RELEASED WITHOUT AUTHORIZATION [facility] [address] [place], [place] [address] Signed of what appeared to be probable hepatic flexure. The anastomosis was identified and the scope passed into the ileum for several inches. The scope was withdrawn and closer inspection of the anastomosis showed no sign of stricture or neoplasm. Further withdrawal of scope into the colon showed no sign of polyps, only diverticular changes as before. Retroflexed view confirmed some internal hemorrhoidal changes, but not much. The scope was removed. The patient was taken to recovery room in good condition. CONCLUDING DIAGNOSIS: No evidence of recurrent cancer or polyps. Widely patent ileocolic anastomosis. PLAN: Would recommend surveillance colonoscopy in 3 to 5 years if clinically reasonable. She will return to the ongoing care of Dr. Diana. MD ANSON Palmer/THIAGO /[id number] cc: Rogelio Diana MD Copies: ROGELIO DIANA MD ~ Electronically Signed By: JAGDISH AGUILERA MD 07/29/19 1838 PATIENT NAME: JENNIFER GOODE OPERATIVE REPORT DATE OF : 48 REPORT #: [id number] PHYSICIAN: JAGDISH AGUILERA MD PCP: ROGELIO DIANA MD REPORT IS CONFIDENTIAL AND NOT TO BE RELEASED WITHOUT AUTHORIZATION
== END 2019-07-28 15:22 | disposition home or self-care (01) ==
LOC: OPS 12:49 → DS 12:52 → OPS 14:00 → DS 14:00 → OPS 15:22
PROVIDERS: Surgery
PROC: 0DJD8ZZ Inspection of Lower Intestinal Tract, Via Natural or Artificial Opening Endoscopic (ICD-10-PCS; principal; 2019-07-28 14:00)
DX: Z12.11 Encounter for screening for malignant neoplasm of colon (principal); K57.30 Diverticulosis of large intestine without perforation or abscess without bleeding; I10 Essential (primary) hypertension; F17.210 Nicotine dependence, cigarettes, uncomplicated; D64.9 Anemia, unspecified; F33.9 Major depressive disorder, recurrent, unspecified; K76.9 Liver disease, unspecified; Z85.038 Personal history of other malignant neoplasm of large intestine; Z85.3 Personal history of malignant neoplasm of breast; Z90.49 Acquired absence of other specified parts of digestive tract; Z98.0 Intestinal bypass and anastomosis status; Z79.899 Other long term (current) drug therapy; Z98.890 Other specified postprocedural states
CPT/HCPCS: 99153; G0500; J2250; J3010

== ENCOUNTER 2020-04-09 17:10 | Emergency (ER) | payer MEDICARE ==
[~2020-04-09] VITALS: Ht 154.9 cm; Wt 48.1 kg
--- OUTSIDE RECORDS SUMMARY | ~2020-04-09 | XMS | Clinical Summary ---
Demographics + + + | Address | [address] [place] [address] | | | [place] [address] | + + + | Home Phone | | + + + | Preferred Language | Unknown | + + + | Marital Status | | + + + | Jewish Affiliation | Unknown | + + + | Race | White | + + + | Ethnic Group | Not or | + + + Author + + + | Author | [facility] | | | and [place] | + + + | Organization | [facility] | | | and [place] | + + + | Address | Unknown | + + + | Phone | Unavailable | + + + Support + + +---------+ + | Name | Relationship | Address | Phone | + + +---------+ + | Razia Whaley | ECON | Unknown | | + + +---------+ + Care Team Providers + +------+ + | Care Latex Foam Worker Name | Role | Phone | + +------+ + | Jhon Michelle DO | PCP | | + +------+ + Allergies Not on File Medications Not on file Active Problems Not on file Social History + +-------+ +--------+------+ | Tobacco Use | Types | Packs/Day | Years | Date | | | | | Used | | + +-------+ +--------+------+ | Never Assessed | | | | | + +-------+ +--------+------+ + + + | Sex Assigned at | Date Recorded | | | | + + + | Not on file | | + + + Last Filed Vital Signs + + + + + | Vital Sign | Reading | Time Taken | Comments | + + + + + | Blood Pressure | 191/101 | 10/09/2015 12:24 PM | | | | | PDT | | + + + + + | Pulse | 71 | 10/09/2015 12:24 PM | | | | | PDT | | + + + + + | Temperature | 36.9 C (98.4 F) | 10/09/2015 12:24 PM | | | | | PDT | | + + + + + | Respiratory Rate | 16 | 10/09/2015 12:24 PM | | | | | PDT | | + + + + + | Oxygen Saturation | 99% | 10/09/2015 12:24 PM | | | | | PDT | | + + + + + | Inhaled Oxygen | - | - | | | Concentration | | | | + + + + + | Weight | 56.2 kg (123 lb 14.4 | 10/09/2015 12:24 PM | | | | oz) | PDT | | + + + + + | Height | 157 cm (5' 1.81") | 10/09/2015 12:24 PM | | | | | PDT | | + + + + + | Body Mass Index | 22.8 | 10/09/2015 12:24 PM | | | | | PDT | | + + + + + Plan of Treatment + + +-------+ + | Health Maintenance | Due Date | Last | Comments | | | | Done | | + + +-------+ + | Vaccine: | | | | | Dtap/Tdap/Td (1 - | 8 | | | | Tdap) | | | | + + +-------+ + | Vaccine: Zoster (1 | | | | | of 2) | 9 | | | + + +-------+ + | Breast Cancer | | | | | Screening | 4 | | | + + +-------+ + | Vaccine: | | | | | Pneumococcal 65+ (1 | 4 | | | | of 1 - PPSV23) | | | | + + +-------+ + | Vaccine: Influenza | | | | | (#1) | 0 | | | + + +-------+ + Results Not on filefrom Last 3 Months Insurance + +--------+ +--------+ +---------+--------+ | Payer | Benefi | Subscriber | Effect | Phone | Address | Type | | | t Plan | ID | arlin | | | | | | / | | Dates | | | | | | Group | | | | | | + +--------+ +--------+ +---------+--------+ | MEDICARE | MEDICA | [id number] | 10/09/19 | [phone] | | Medica | | | RE | | 16-Pre | 5 | | re | | | PART A | | sent | | | | | | AND B | | | | | | + +--------+ +--------+ +---------+--------+ | AARP | AARP | [id number] | 10/09/19 | [phone] | | Indemn | | | MDCR | | 16-Pre | 0 | | ity | | | SUPPL | | sent | | | | + +--------+ +--------+ +---------+--------+ + +--------+ +--------+ + + | Guarantor Name | Accoun | Relation to | Date | Phone | Billing Address | | | t Type | Patient | of | | | | | | | | | | + +--------+ +--------+ + + | Gali Tyler | Person | Self [birth year] [address] | | | al/Fam | | 1950 | [phone] | [place] [address] | | | daniel | | | 8 (Home) | | + +--------+ +--------+ + + Advance Directives + + + + + | Type | Date Recorded | Patient | Explanation | | | | Knitter Machine | | + + + + + | Power of | | | | | Commercial Review Appraiser | | | | + + + + + | Advance | | | | | Directive | | | | + + + + +
--- OUTSIDE RECORDS SUMMARY | ~2020-04-09 | XMS | Encounter Summary ---
Demographics + + + | Address | [address] | | | [place] [address] | + + + | Home Phone | | + + + | Preferred Language | Unknown | + + + | Marital Status | | + + + | Yarsani Affiliation | Unknown | + + + | Race | White | + + + | Ethnic Group | Not or | + + + Author + + + | Author | [facility] | | | and [place] | + + + | Organization | [facility] | | | [...] Team Providers + +------+ + | Care Conductor/Brakeman Name | Role | Phone | + +------+ + PCP | Unavailable | + +------+ + Encounter Details +--------+ + + + + | Date | Type | Department | Care Team | Description | +--------+ + + + + | 05/04/ | Hospital | [facility] | [facility] | | | 2011 | Encounter | [facility] | MD [address] | | | | | [address] | [address] | | | | | [address] [place] | [place] | | | | | [address] | [phone] | | | | | [phone] | [phone] | | | | | | | | +--------+ + + + + Social History + +-------+ +--------+------+ | Tobacco [...] on file | | + + + documented as of this encounter Plan of Treatment Not on filedocumented as of this encounter Visit Diagnoses Not on filedocumented in this encounter"
--- OUTSIDE RECORDS SUMMARY | ~2020-04-09 | XMS | Encounter Summary ---
Demographics + + + | Address | [address] | | | [place] [address] | + + + | Home Phone | | + + + | Preferred Language | Unknown | + + + | Marital Status | | + + + | Confucianist Affiliation | Unknown | + + + | Race | White | + + + | Ethnic Group | Not or | + + + Author + + + | Author | [facility] | | | and [place] | + + + | Organization | [facility] | | | and [...] Team Providers + +------+ + | Care Surgical Instrument Repair Specialist Name | Role | Phone | + +------+ + | Jhon Michelle DO | PCP | | + +------+ + Encounter Details +--------+ + + + + | Date | Type | Department | Care Team | Description | +--------+ + + + + | 12/24/ | Orders Only | [facility] | Cody Lozano | | | 2017 | | CONVERSION 888 | MD [address] | | | | | [place] | [place] | | | | | [place] | [place] | | | | | [address] | [phone] | | | | | [phone] | [phone] | | | | | | | [...] Not on filedocumented as of this encounter Procedures + +--------+ + + + | Procedure Name | Priori | Date/Time | Associated Diagnosis | Comments | | | ty | | | | + +--------+ + + + | ECHO INTERPRETATION | Routin | 12/24/2016 | | Results for this | | OF OUTSIDE FILMS | e | 1:17 PM | | procedure are in the | | | | PDT | | results section. | + +--------+ + + + documented in this encounter Results ECHO Interpretation of Outside Films (12/24/2016 1:17 PM PDT) + + | Specimen | + + | | + + + + + | Impressions | Performed At | + + + | 1. Overall left ventricular systolic function is normal with, an EF | | | between 60 - 65 %. 2. The diastolic filling pattern indicates | | | impaired relaxation consistent with mild dysfunction (Grade I). 3. | | | There is trace mitral regurgitation. 4. Mild tricuspid regurgitation | | | present. 5. The right ventricular systolic pressure (pulmonary artery | | | systolic pressure), as measured by Doppler, is 37.13mmHg. | | + + + + + + | Narrative | Performed At | + + + | Patient Name: Gali Tyler Date of : 1950 | | | Performing Physician: Peter Pearson MD | | | | | | INDICATIONS Heart failure CONCLUSIONS | | | 1. Overall left ventricular systolic function is normal with, an EF | | | between 60 - 65 %. 2. The diastolic filling pattern indicates | | | impaired relaxation consistent with mild dysfunction (Grade I). 3. | | | There is trace mitral regurgitation. 4. Mild tricuspid regurgitation | | | present. 5. The right ventricular systolic pressure (pulmonary artery | | | systolic pressure), as measured by Doppler, is 37.13mmHg. | | | FINDINGS -------- ECG rhythm: Sinus rhythm. Study: A 2-dimensional | | | transthoracic echocardiogram with m-mode, spectral and color flow | | | Doppler was perfomed. Study: This was a technically adequate study. | | | Left Ventricle: Overall left ventricular systolic function is normal | | | with, an EF between 60 - 65 %. Left Ventricle: The left ventricle | | | cavity size is normal. Left Ventricle: Left ventricular wall | | | thickness is normal. Left Ventricle: The diastolic filling pattern | | | indicates impaired relaxation consistent with mild dysfunction (Grade | | | I). Right Ventricle: The right ventricle is normal in size and | | | function. Left Atrium: The left atrium is normal in size. Right | | | Atrium: The right atrium is mildly enlarged. Aortic Valve: There is | | | mild aortic valve sclerosis without stenosis. Aortic Valve: There is | | | no evidence of aortic regurgitation. 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 Mitral Valve: There is trace | | | mitral regurgitation. Mitral Valve: Mild mitral annular calcification | | | present. Tricuspid Valve: The tricuspid valve appears structurally | | | normal. Tricuspid Valve: Mild tricuspid regurgitation present. | | | Tricuspid Valve: The right ventricular systolic pressure (pulmonary | | | artery systolic pressure), as measured by Doppler, is 37.13mmHg. | | | Pulmonic Valve: The pulmonic valve is normal. Pericardium: There is | | | no pericardial effusion. IVC/Hepatic Veins: The IVC is normal size | | | (1.5-2.5cm) and collapses >50% with sniff, consistent with central | | | venous pressures of 5-10mmHg. Mass: No mass visualized Thrombus: No | | | clot visualized Septum: No ASD observed. MEASUREMENTS | | | Ao asc: 2.67 cm IVC: 1.48 cm EDV(Teich): | | | 49.26 ml IVSd: 0.89 cm LVIDd: 3.45 cm LVPWd: 0.99 cm LVOT | | | Area: 2.56 cm2 LVOT Diam: 1.80 cm %FS: 29.30 % EF(Teich): | | | 57.27 % ESV(Teich): 21.04 ml LVIDs: 2.44 cm SV(Teich): | | | 28.21 ml RVIDd: 2.31 cm LVEF MOD A4C: 62.75 % SV MOD A4C: | | | 36.81 ml LVEDV MOD A4C: 58.66 ml LVLd A4C: 6.09 cm LVESV MOD | | | A4C: 21.85 ml LVLs A4C: 5.25 cm LAESV(A-L): 34.42 ml | | | LAESV Index (A-L): 23.26 ml/m2 LAAs A2C: 14.41 cm2 LAESV A-L | | | A2C: 37.73 ml LALs A2C: 4.67 cm LAAs A4C: 11.60 cm2 LAESV | | | A-L A4C: 27.71 ml LALs A4C: 4.12 cm RAAs: 13.96 cm2 RAESV | | | A-L: 38.30 ml RAESV MOD: 34.93 ml RALs: 4.32 cm TAPSE: | | | 2.51 cm AV maxP.08 mmHg AV meanP.61 mmHg AV Vmax: | | | 1.23 m/s AV Vmean: 0.91 m/s AV VTI: 26.02 cm EARNESTINE Vmax: | | | 2.22 cm2 EARNESTINE (VTI): 2.20 cm2 AVAI Vmax: 0.00 cm2/m2 AVAI | | | (VTI): 0.00 cm2/m2 LVOT maxP.55 mmHg LVOT meanP.23 | | | mmHg LVSI Dopp: 38.84 ml/m2 LVSV Dopp: 57.49 ml LVOT Vmax: | | | 1.06 m/s LVOT Vmean: 0.68 m/s LVOT VTI: 22.40 cm MV A Pancho: | | | 0.90 m/s MV DecT: 248.05 ms MV E Pancho: 0.81 m/s MV E/A | | | Ratio: 0.89 MV PHT: 71.93 ms MVA By PHT: 3.05 cm2 Septal | | | e': 0.05 m/s Septal E/e': 14.57 Lateral e': 0.04 m/s | | | Lateral E/e': 18.06 PV maxP.72 mmHg PV Vmax: 0.82 m/s | | | RAP: 10 mmHg RVSP: 37.12 mmHg TR maxP.12 mmHg TR | | | Vmax: 2.60 m/s Jet Mechanic: [email or web address] Authenticated by: Peter Pearson | | | Report Date/Time: 12-26-2016 08:39:24 | | + + + + + | Procedure Note | + + | Gustavo, Yosvany Conversion - 02/24/2019 8:21 PM PDT Patient Name: Alyssa Tyler of | | : 1950 Performing Physician: Peter Pearson | | INDICATIONS H | | eart failure CONCLUSIONS 1. Overall left ventricular systolic function is | | normal with, an EF between 60 - 65 %.2. The diastolic filling pattern indicates impaired | | relaxation consistent with mild dysfunction (Grade I).3. There is trace mitral | | regurgitation.4. Mild tricuspid regurgitation present.5. The right ventricular systolic | | pressure (pulmonary artery systolic pressure), as measured by Doppler, is 37.13mmHg. | | FINDINGS--------ECG rhythm: Sinus rhythm.Study: A 2-dimensional transthoracic | | echocardiogram with m-mode, spectral and color flow Doppler was perfomed.Study: This was | | a technically adequate study.Left Ventricle: Overall left ventricular systolic function | | is normal with, an EF between 60 - 65 %.Left Ventricle: The left ventricle cavity size | | is normal.Left Ventricle: Left ventricular wall thickness is normal.Left Ventricle: The | | diastolic filling pattern indicates impaired relaxation consistent with mild dysfunction | | (Grade I).Right Ventricle: The right ventricle is normal in size and function.Left | | Atrium: The left atrium is normal in size.Right Atrium: The right atrium is mildly | | enlarged.Aortic Valve: There is mild aortic valve sclerosis without stenosis.Aortic | | Valve: There is no evidence of aortic regurgitation.Mitral Valve: 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.Mitral Valve: There is trace mitral | | regurgitation.Mitral Valve: Mild mitral annular calcification present.Tricuspid Valve: | | The tricuspid valve appears structurally normal.Tricuspid Valve: Mild tricuspid | | regurgitation present.Tricuspid Valve: The right ventricular systolic pressure | | (pulmonary artery systolic pressure), as measured by Doppler, is 37.13mmHg.Pulmonic | | Valve: The pulmonic valve is normal.Pericardium: There is no pericardial | | effusion.IVC/Hepatic Veins: The IVC is normal size (1.5-2.5cm) and collapses >50% with | | sniff, consistent with central venous pressures of 5-10mmHg.Mass: No mass | | visualizedThrombus: No clot visualizedSeptum: No ASD observed. | | MEASUREMENTS Ao asc: 2.67 cmIVC: 1.48 cmEDV(Teich): 49.26 mlIVSd: | | 0.89 cmLVIDd: 3.45 cmLVPWd: 0.99 cmLVOT Area: 2.56 dw2VRCA Diam: 1.80 cm%FS: | | 29.30 %EF(Teich): 57.27 %ESV(Teich): 21.04 mlLVIDs: 2.44 cmSV(Teich): 28.21 | | mlRVIDd: 2.31 cmLVEF MOD A4C: 62.75 %SV MOD A4C: 36.81 mlLVEDV MOD A4C: 58.66 | | mlLVLd A4C: 6.09 cmLVESV MOD A4C: 21.85 mlLVLs A4C: 5.25 cmLAESV(A-L): 34.42 | | mlLAESV Index (A-L): 23.26 ml/m2LAAs A2C: 14.41 [id number] A-L A2C: 37.73 mlLALs | | A2C: 4.67 cmLAAs A4C: 11.60 [id number] A-L A4C: 27.71 mlLALs A4C: 4.12 cmRAAs: | | 13.96 [id number] A-L: 38.30 mlRAESV MOD: 34.93 mlRALs: 4.32 cmTAPSE: 2.51 cmAV | | maxP.08 mmHgAV meanP.61 mmHgAV Vmax: 1.23 m/Deepa Vmean: 0.91 m/Deepa VTI: | | 26.02 cmAVA Vmax: 2.22 cm2AVA (VTI): 2.20 [id number] Vmax: 0.00 cm2/m2AVAI (VTI): | | 0.00 cm2/m2LVOT maxP.55 mmHgLVOT meanP.23 mmHgLVSI Dopp: 38.84 ml/m2LVSV | | Dopp: 57.49 mlLVOT Vmax: 1.06 m/sLVOT Vmean: 0.68 m/sLVOT VTI: 22.40 cmMV A Pancho: | | 0.90 m/sMV DecT: 248.05 msMV E Pancho: 0.81 m/sMV E/A Ratio: 0.89MV PHT: 71.93 | | msMVA By PHT: 3.05 es0Ozcedt e': 0.05 m/sSeptal E/e': 14.57Lateral e': 0.04 | | m/sLateral E/e': 18.06PV maxP.72 mmHgPV Vmax: 0.82 m/sRAP: 10 mmHgRVSP: | | 37.12 mmHgTR maxP.12 mmHgTR Vmax: 2.60 m/s Jet Mechanic: [email or web address] by: | | [facility] Date/Time: 12-26-2016 08:39:24 IMPRESSION: 1. Overall left | | ventricular systolic function is normal with, an EF between 60 - 65 %.2. The diastolic | | filling pattern indicates impaired relaxation consistent with mild dysfunction (Grade | | I).3. There is trace mitral regurgitation.4. Mild tricuspid regurgitation present.5. The | | right ventricular systolic pressure (pulmonary artery systolic pressure), as measured | | by Doppler, is 37.13mmHg. | |Ao asc: 2.67 cm | |IVC: 1.48 cm | |EDV(Teich): 49.26 ml | |IVSd: 0.89 cm | |LVIDd: 3.45 cm | |LVPWd: 0.99 cm | |LVOT Area: 2.56 cm2 | |LVOT Diam: 1.80 cm | |%FS: 29.30 % | |EF(Teich): 57.27 % | |ESV(Teich): 21.04 ml | |LVIDs: 2.44 cm | |SV(Teich): 28.21 ml | |RVIDd: 2.31 cm | |LVEF MOD A4C: 62.75 % | |SV MOD A4C: 36.81 ml | |LVEDV MOD A4C: 58.66 ml | |LVLd A4C: 6.09 cm | |LVESV MOD A4C: 21.85 ml | |LVLs A4C: 5.25 cm | |LAESV(A-L): 34.42 ml | |LAESV Index (A-L): 23.26 ml/m2 | |LAAs A2C: 14.41 cm2 | |LAESV A-L A2C: 37.73 ml | |LALs A2C: 4.67 cm | |LAAs A4C: 11.60 cm2 | |LAESV A-L A4C: 27.71 ml | |LALs A4C: 4.12 cm | |RAAs: 13.96 cm2 | |RAESV A-L: 38.30 ml | |RAESV MOD: 34.93 ml | |RALs: 4.32 cm | |TAPSE: 2.51 cm | |AV maxP.08 mmHg | |AV meanP.61 mmHg | |AV Vmax: 1.23 m/s | |AV Vmean: 0.91 m/s | |AV VTI: 26.02 cm | |EARNESTINE Vmax: 2.22 cm2 | |EARNESTINE (VTI): 2.20 cm2 | |AVAI Vmax: 0.00 cm2/m2 | |AVAI (VTI): 0.00 cm2/m2 | |LVOT maxP.55 mmHg | |LVOT meanP.23 mmHg | |LVSI Dopp: 38.84 ml/m2 | |LVSV Dopp: 57.49 ml | |LVOT Vmax: 1.06 m/s | |LVOT Vmean: 0.68 m/s | |LVOT VTI: 22.40 cm | |MV A Pancho: 0.90 m/s | |MV DecT: 248.05 ms | |MV E Pancho: 0.81 m/s | |MV E/A Ratio: 0.89 | |MV PHT: 71.93 ms | |MVA By PHT: 3.05 cm2 | |Septal e': 0.05 m/s | |Septal E/e': 14.57 | |Lateral e': 0.04 m/s | |Lateral E/e': 18.06 | |PV maxP.72 mmHg | |PV Vmax: 0.82 m/s | |RAP: 10 mmHg | |RVSP: 37.12 mmHg | |TR maxP.12 mmHg | |TR Vmax: 2.60 m/s | | | |Jet Mechanic: [email or web address] | |Authenticated by: Peter Pearson MD | |Report Date/Time: 12-26-2016 08:39:24 | | | |IMPRESSION: | |1. Overall left ventricular systolic function is normal with, an EF between 60 - 65 %. | |2. The diastolic filling pattern indicates impaired relaxation consistent with mild dysfunc tion (Grade I). | |3. There is trace mitral regurgitation. | |4. Mild tricuspid regurgitation present. | |5. The right ventricular systolic pressure (pulmonary artery systolic pressure), as measure d by Doppler, is 37.13mmHg. | + + documented in this encounter Visit Diagnoses Not on filedocumented in this encounter"
--- OUTSIDE RECORDS SUMMARY | ~2020-04-09 | XMS | Encounter Summary ---
Demographics + + + | Address | [address] | | | [place] [address] | + + + | Home Phone | | + + + | Preferred Language | Unknown | + + + | Marital Status | | + + + | Spiritism Affiliation | Unknown | + + + | Race | White | + + + | Ethnic Group | Not or | + + + Author + + + | Author | [facility] | | | and [place] | + + + | Organization | [facility] | | | [...] Team Providers + +------+ + | Care Ammonia Refrigeration Technician Name | Role | Phone | + +------+ + | Jhon Michelle DO | PCP | | + +------+ + Encounter Details +--------+ + + + + | Date | Type | Department | Care Team | Description | +--------+ + + + + | 03/25/ | Orders Only | [facility] | Gali Coffman, | | | 2018 | | CONVERSION 888 | MD [address] | | | | | [place] | [place] | | | | | [place] | [address] | | | | | [phone] | | | | | | [phone] | | | +--------+ + + + [...] + | ECHO INTERPRETATION | Routin | 03/25/2018 | | Results for this | | OF OUTSIDE FILMS | e | 9:44 AM | | procedure are in the | | | | PDT | | results section. | + +--------+ + + + documented in this encounter Results ECHO Interpretation of Outside Films (03/25/2018 9:44 AM PDT) + + | Specimen | + + | | + + + + + | Impressions | Performed At | + + + | 1. The left ventricle is normal in size with hyperdynamic systolic | | | function EF >70%. 2. The right ventricle is normal in size and | | | function. 3. Mild tricuspid regurgitation and moderate pulmonary | | | hypertension RVSP 53 mmHg. 4. There is no pericardial effusion. | | + + + + + + | Narrative | Performed At | + + + | Patient Name: Gali Tyler Date of : 1950 | | | Performing Physician: Manuel Murphy | | | | | | INDICATIONS CHF CONCLUSIONS 1. The | | | left ventricle is normal in size with hyperdynamic systolic function | | | EF >70%. 2. The right ventricle is normal in size and function. 3. | | | Mild tricuspid regurgitation and moderate pulmonary hypertension RVSP | | | 53 mmHg. 4. There is no pericardial effusion. FINDINGS -------- | | | ECG rhythm: Sinus rhythm. ECG rhythm: Resting tachycardia | | | (HR>100bpm). Study: A 2-dimensional transthoracic echocardiogram with | | | m-mode, spectral and color flow Doppler was perfomed. Study: This | | | was a technically difficult study with suboptimal views. Left | | | Ventricle: Left ventricular systolic function is hyperdynamic with an | | | estimated EF of >70%. Left Ventricle: The left ventricle cavity size | | | is normal. Left Ventricle: Left ventricular wall thickness is normal. | | | Right Ventricle: The right ventricle is normal in size and function. | | | Left Atrium: The left atrium is normal in size. Right Atrium: The | | | right atrium is normal in size. Aortic Valve: The aortic valve is | | | trileaflet. Aortic Valve: There is no evidence of aortic | | | regurgitation. Aortic Valve: There is no evidence of aortic stenosis. | | | Aortic Valve: The aortic valve is trileaflet and appears | | | structurally normal. Mitral Valve: Mitral valve is mildy thickened. | | | Mitral Valve: No mitral regurgitation. Tricuspid Valve: The tricuspid | | | valve appears structurally normal. Tricuspid Valve: Mild tricuspid | | | regurgitation present. Tricuspid Valve: There is moderate pulmonary | | | hypertension. Tricuspid Valve: The right ventricular systolic | | | pressure (pulmonary artery systolic pressure), as measured by Doppler, | | | is 53.36mmHg. Pulmonic Valve: The pulmonic valve was not well | | | visualized. Pericardium: There is no pericardial effusion. | | | Pericardium: No pleural effusion seen. IVC/Hepatic Veins: The IVC is | | | small (<1.5cm) and collapses with sniff, consistent with central | | | venous pressures of 0-5mmHg. Aorta: Ascending and arch not | | | visualized. MEASUREMENTS Ao Diam: 3.55 cm Ao | | | st junct: 2.80 cm IVC: 1.41 cm LA Diam: 3.60 cm LA Major: | | | 3.68 cm EDV(Teich): 47.65 ml IVSd: 0.75 cm LVIDd: 3.40 | | | cm LVPWd: 0.94 cm LVOT Area: 3.00 cm2 LVOT Diam: 1.95 cm | | | %FS: 31.43 % EF(Teich): 60.47 % ESV(Teich): 18.83 ml | | | LVIDs: 2.33 cm SV(Teich): 28.82 ml RA Major: 3.94 cm RV | | | Major: 5.79 cm RVIDd: 2.19 cm TV Irma Diam: 2.84 cm Ao Diam | | | SVals: 3.67 cm LVEF MOD A2C: 74.94 % SV MOD A2C: 23.66 ml | | | LVEF MOD A4C: 78.97 % SV MOD A4C: 24.84 ml EF Biplane: | | | 76.75 % LVEDV MOD BP: 31.47 ml LVESV MOD BP: 7.31 ml LVEDV | | | MOD A2C: 31.57 ml LVLd A2C: 6.35 cm LVEDV MOD A4C: 31.45 ml | | | LVLd A4C: 6.40 cm LVESV MOD A2C: 7.91 ml LVLs A2C: 5.44 | | | cm LVESV MOD A4C: 6.61 ml LVLs A4C: 5.28 cm LAESV(A-L): | | | 21.85 ml LAESV Index (A-L): 15.28 ml/m2 LAAs A2C: 8.35 cm2 | | | LAESV A-L A2C: 14.64 ml LALs A2C: 4.04 cm LAAs A4C: 12.46 | | | cm2 LAESV A-L A4C: 30.25 ml LALs A4C: 4.40 cm RAAs: 9.52 | | | cm2 RAESV A-L: 18.82 ml RAESV MOD: 18.18 ml RALs: 4.11 cm | | | TAPSE: 2.35 cm AV maxP.83 mmHg AV meanP.30 mmHg | | | AV Vmax: 1.56 m/s AV Vmean: 1.07 m/s AV VTI: 17.88 cm EARNESTINE | | | Vmax: 2.76 cm2 EARNESTINE (VTI): 3.84 cm2 LVOT maxP.32 mmHg | | | LVOT meanP.18 mmHg LVSI Dopp: 48.06 ml/m2 LVSV Dopp: | | | 68.73 ml LVOT Vmax: 1.44 m/s LVOT Vmean: 1.08 m/s LVOT VTI: | | | 22.87 cm MV A Pancho: 1.08 m/s MV Dec [place]: 4.13 m/s2 MV | | | DecT: 154.67 ms MV E Pancho: 0.63 m/s MV E/A Ratio: 0.59 MV | | | PHT: 44.85 ms MVA By PHT: 4.90 cm2 Septal e': 0.06 m/s | | | Septal E/e': 10.49 Lateral e': 0.08 m/s Lateral E/e': 7.93 | | | RAP: 5 mmHg RVSP: 53.36 mmHg TR maxP.36 mmHg TR | | | Vmax: 3.47 m/s Rn Endoscopy: SOLO Authenticated by: Manuel | | | [facility] Report Date/Time: 03-25-2018 16:34:38 | | + + + + + | Procedure Note | + + | Gustavo Yosvany Conversion - 02/24/2019 5:01 PM PDT Patient Name: Alyssa Tyler of | | : 1950 Performing Physician: Manuel | | [facility] | | -----CHF CONCLUSIONS 1. The left ventricle is normal in size with hyperdynamic | | systolic function EF >70%.2. The right ventricle is normal in size and function.3. Mild | | tricuspid regurgitation and moderate pulmonary hypertension RVSP 53 mmHg.4. There is no | | pericardial effusion. FINDINGS--------ECG rhythm: Sinus rhythm.ECG rhythm: Resting | | tachycardia (HR>100bpm).Study: A 2-dimensional transthoracic echocardiogram with m-mode, | | spectral and color flow Doppler was perfomed.Study: This was a technically difficult | | study with suboptimal views.Left Ventricle: Left ventricular systolic function is | | hyperdynamic with an estimated EF of >70%.Left Ventricle: The left ventricle cavity size | | is normal.Left Ventricle: Left ventricular wall thickness is normal.Right Ventricle: | | The right ventricle is normal in size and function.Left Atrium: The left atrium is | | normal in size.Right Atrium: The right atrium is normal in size.Aortic Valve: The aortic | | valve is trileaflet.Aortic Valve: There is no evidence of aortic regurgitation.Aortic | | Valve: There is no evidence of aortic stenosis.Aortic Valve: The aortic valve is | | trileaflet and appears structurally normal.Mitral Valve: Mitral valve is mildy | | thickened.Mitral Valve: No mitral regurgitation.Tricuspid Valve: The tricuspid valve | | appears structurally normal.Tricuspid Valve: Mild tricuspid regurgitation | | present.Tricuspid Valve: There is moderate pulmonary hypertension.Tricuspid Valve: The | | right ventricular systolic pressure (pulmonary artery systolic pressure), as measured by | | Doppler, is 53.36mmHg.Pulmonic Valve: The pulmonic valve was not well | | visualized.Pericardium: There is no pericardial effusion.Pericardium: No pleural | | effusion seen.IVC/Hepatic Veins: The IVC is small (<1.5cm) and collapses with sniff, | | consistent with central venous pressures of 0-5mmHg.Aorta: Ascending and arch not | | visualized. MEASUREMENTS Ao Diam: 3.[address] junct: 2.80 cmIVC: 1.41 | | cmLA Diam: 3.60 cmLA Major: 3.68 cmEDV(Teich): 47.65 mlIVSd: 0.75 cmLVIDd: | | 3.40 cmLVPWd: 0.94 cmLVOT Area: 3.00 [id number] Diam: 1.95 cm%FS: 31.43 %EF(Teich): | | 60.47 %ESV(Teich): 18.83 mlLVIDs: 2.33 cmSV(Teich): 28.82 mlRA Major: 3.94 | | cmRV Major: 5.79 cmRVIDd: 2.19 cmTV Irma Diam: 2.84 cmAo Diam SVals: 3.67 cmLVEF | | MOD A2C: 74.94 %SV MOD A2C: 23.66 mlLVEF MOD A4C: 78.97 %SV MOD A4C: 24.84 mlEF | | Biplane: 76.75 %LVEDV MOD BP: 31.47 mlLVESV MOD BP: 7.31 mlLVEDV MOD A2C: 31.57 | | mlLVLd A2C: 6.35 cmLVEDV MOD A4C: 31.45 mlLVLd A4C: 6.40 cmLVESV MOD A2C: 7.91 | | mlLVLs A2C: 5.44 cmLVESV MOD A4C: 6.61 mlLVLs A4C: 5.28 cmLAESV(A-L): 21.85 | | mlLAESV Index (A-L): 15.28 ml/m2LAAs A2C: 8.35 ur3JVODU A-L A2C: 14.64 mlLALs A2C: | | 4.04 cmLAAs A4C: 12.46 qj6QHTJD A-L A4C: 30.25 mlLALs A4C: 4.40 cmRAAs: 9.52 | | [id number] A-L: 18.82 mlRAESV MOD: 18.18 mlRALs: 4.11 cmTAPSE: 2.35 cmAV maxPG: | | 9.83 mmHgAV meanP.30 mmHgAV Vmax: 1.56 m/Deepa Vmean: 1.07 m/Deepa VTI: 17.88 | | cmAVA Vmax: 2.76 cm2AVA (VTI): 3.84 gp2AQGN maxP.32 mmHgLVOT meanP.18 | | mmHgLVSI Dopp: 48.06 ml/m2LVSV Dopp: 68.73 mlLVOT Vmax: 1.44 m/sLVOT Vmean: 1.08 | | m/sLVOT VTI: 22.87 cmMV A Pancho: 1.08 m/sMV Dec [place]: 4.13 m/s2MV DecT: 154.67 | | msMV E Pancho: 0.63 m/sMV E/A Ratio: 0.59MV PHT: 44.85 msMVA By PHT: 4.90 [id number] | | e': 0.06 m/sSeptal E/e': 10.49Lateral e': 0.08 m/sLateral E/e': 7.93RAP: 5 | | mmHgRVSP: 53.36 mmHgTR maxP.36 mmHgTR Vmax: 3.47 m/s Rn Endoscopy: | | DHAuthenticated by: Manuel [facility] Date/Time: 03-25-2018 16:34:38 IMPRESSION: 1. | | The left ventricle is normal in size with hyperdynamic systolic function EF >70%.2. The | | right ventricle is normal in size and function.3. Mild tricuspid regurgitation and | | moderate pulmonary hypertension RVSP 53 mmHg.4. There is no pericardial effusion. | | | |Ao Diam: 3.55 cm | |Ao st junct: 2.80 cm | |IVC: 1.41 cm | |LA Diam: 3.60 cm | |LA Major: 3.68 cm | |EDV(Teich): 47.65 ml | |IVSd: 0.75 cm | |LVIDd: 3.40 cm | |LVPWd: 0.94 cm | |LVOT Area: 3.00 cm2 | |LVOT Diam: 1.95 cm | |%FS: 31.43 % | |EF(Teich): 60.47 % | |ESV(Teich): 18.83 ml | |LVIDs: 2.33 cm | |SV(Teich): 28.82 ml | |RA Major: 3.94 cm | |RV Major: 5.79 cm | |RVIDd: 2.19 cm | |TV Irma Diam: 2.84 cm | |Ao Diam SVals: 3.67 cm | |LVEF MOD A2C: 74.94 % | |SV MOD A2C: 23.66 ml | |LVEF MOD A4C: 78.97 % | |SV MOD A4C: 24.84 ml | |EF Biplane: 76.75 % | |LVEDV MOD BP: 31.47 ml | |LVESV MOD BP: 7.31 ml | |LVEDV MOD A2C: 31.57 ml | |LVLd A2C: 6.35 cm | |LVEDV MOD A4C: 31.45 ml | |LVLd A4C: 6.40 cm | |LVESV MOD A2C: 7.91 ml | |LVLs A2C: 5.44 cm | |LVESV MOD A4C: 6.61 ml | |LVLs A4C: 5.28 cm | |LAESV(A-L): 21.85 ml | |LAESV Index (A-L): 15.28 ml/m2 | |LAAs A2C: 8.35 cm2 | |LAESV A-L A2C: 14.64 ml | |LALs A2C: 4.04 cm | |LAAs A4C: 12.46 cm2 | |LAESV A-L A4C: 30.25 ml | |LALs A4C: 4.40 cm | |RAAs: 9.52 cm2 | |RAESV A-L: 18.82 ml | |RAESV MOD: 18.18 ml | |RALs: 4.11 cm | |TAPSE: 2.35 cm | |AV maxP.83 mmHg | |AV meanP.30 mmHg | |AV Vmax: 1.56 m/s | |AV Vmean: 1.07 m/s | |AV VTI: 17.88 cm | |EARNESTINE Vmax: 2.76 cm2 | |EARNESTINE (VTI): 3.84 cm2 | |LVOT maxP.32 mmHg | |LVOT meanP.18 mmHg | |LVSI Dopp: 48.06 ml/m2 | |LVSV Dopp: 68.73 ml | |LVOT Vmax: 1.44 m/s | |LVOT Vmean: 1.08 m/s | |LVOT VTI: 22.87 cm | |MV A [place]: 1.08 m/s | |MV Dec [place]: 4.13 m/s2 | |MV DecT: 154.67 ms | |MV E [place]: 0.63 m/s | |MV E/A Ratio: 0.59 | |MV PHT: 44.85 ms | |MVA By PHT: 4.90 cm2 | |Septal e': 0.06 m/s | |Septal E/e': 10.49 | |Lateral e': 0.08 m/s | |Lateral E/e': 7.93 | |RAP: 5 mmHg | |RVSP: 53.36 mmHg | |TR maxP.36 mmHg | |TR Vmax: 3.47 m/s | | | |Rn Endoscopy: SOLO | |Authenticated by: Manuel Murphy | |Report Date/Time: 03-25-2018 16:34:38 | | | |IMPRESSION: | |1. The left ventricle is normal in size with hyperdynamic systolic function EF >70%. | |2. The right ventricle is normal in size and function. | |3. Mild tricuspid regurgitation and moderate pulmonary hypertension RVSP 53 mmHg. | |4. There is no pericardial effusion. | + + documented in this encounter Visit Diagnoses Not on filedocumented in this encounter"
--- OUTSIDE RECORDS SUMMARY | ~2020-04-09 | XMS | Encounter Summary ---
Demographics + + + | Address | [address] | | | [place] [address] | + + + | Home Phone | | + + + | Preferred Language | Unknown | + + + | Marital Status | | + + + | Uatsdin Affiliation | Unknown | + + + | Race | White | + + + | Ethnic Group | Not or | + + + Author + + + | Author | [facility] | | | and [place] | + + + | Organization | [facility] | | | [...] Team Providers + +------+ + | Care Load Dispatcher Name | Role | Phone | + +------+ + PCP | Unavailable | + +------+ + Encounter Details +--------+ + + + + | Date | Type | Department | Care Team | Description | +--------+ + + + + | 09/28/ | Hospital | [facility] | Ryan Nava | | | 2014 | Encounter | [facility]OSP[facility] HEMATOLOGY | [address] | | | | | ON[address]OGY [address] | [address] | | | | | [place] | [place] | | | | | [address] | [address] | | | | | [phone] | [phone] | | | | | | | [...]
--- OUTSIDE RECORDS SUMMARY | ~2020-04-09 | XMS | Encounter Summary ---
Demographics + + + | Address | [address] | | | [place] [address] | + + + | Home Phone | | + + + | Preferred Language | Unknown | + + + | Marital Status | | + + + | Temple Affiliation | Unknown | + + + | Race | White | + + + | Ethnic Group | Not or | + + + Author + + + | Author | [facility] | | | and [place] | + + + | Organization | [facility] | | | and [...] Team Providers + +------+ + | Care Binding Folder Machine Name | Role | Phone | + +------+ + PCP | Unavailable | + +------+ + Encounter Details +--------+ + + + + | Date | Type | Department | Care Team | Description | +--------+ + + + + | 10/15/ | Hospital | [facility] | Ryan Nava | | | 2011 | Encounter | HOSPITAL HEMATOLOGY | [address] | | | | | ON[address]OG[address] | [address] | | | | | [place] | [place] | | | | | [address] | [address] | | | | | [phone] | [phone] | | | | | | | [...]
--- OUTSIDE RECORDS SUMMARY | ~2020-04-09 | XMS | Encounter Summary ---
Demographics + + + | Address | [address] | | | [place] [address] | + + + | Home Phone | | + + + | Preferred Language | Unknown | + + + | Marital Status | | + + + | Taoism Affiliation | Unknown | + + + | Race | White | + + + | Ethnic Group | Not or | + + + Author + + + | Author | [facility] | | | and [place] | + + + | Organization | [facility] | | | [...] Team Providers + +------+ + | Care Char Filter Operator Helper Name | Role | Phone | + +------+ + PCP | Unavailable | + +------+ + Encounter Details +--------+ + + + + | Date | Type | Department | Care Team | Description | +--------+ + + + + | 06/17/ | Hospital | [facility] | | | | 2006 - | Encounter | [facility] CAN[facility] | | | | | | MANJULA Ferguson | | | | 07/05/ | | [place] | | | | 2006 | | [address] | | | | | | [phone] | | | +--------+ + + + [...]
--- OUTSIDE RECORDS SUMMARY | ~2020-04-09 | XMS | Encounter Summary ---
Demographics + + + | Address | [address] | | | [place] [address] | + + + | Home Phone | | + + + | Preferred Language | Unknown | + + + | Marital Status | | + + + | Hinduism Affiliation | Unknown | + + + | Race | White | + + + | Ethnic Group | Not or | + + + Author + + + | Author | [facility] | | | and [place] | + + + | Organization | [facility] | | | [...] Team Providers + +------+ + | Care Senior Recruitment Consultant Name | Role | Phone | + +------+ + PCP | Unavailable | + +------+ + Encounter Details +--------+ + + + + | Date | Type | Department | Care Team | Description | +--------+ + + + + | 02/10/ | Hospital | [facility] | | | | 2006 - | Encounter | MED CTR CANCER | | | | | | MANJULA Ferguson | | | | 03/05/ | | [place] | | | | 2006 | | [address] | | | | | | [phone] | | | +--------+ + + + [...]
--- OUTSIDE RECORDS SUMMARY | ~2020-04-09 | XMS | Encounter Summary ---
Demographics + + + | Address | [address] | | | [place] [address] | + + + | Home Phone | | + + + | Preferred Language | Unknown | + + + | Marital Status | | + + + | Gnosticist Affiliation | Unknown | + + + | Race | White | + + + | Ethnic Group | Not or | + + + Author + + + | Author | [facility] | | | and [place] | + + + | Organization | [facility] | | | and [...] Team Providers + +------+ + | Care Last Repairer Name | Role | Phone | + +------+ + PCP | Unavailable | + +------+ + Encounter Details +--------+ + + + + | Date | Type | Department | Care Team | Description | +--------+ + + + + | 05/20/ | Hospital | [facility] | | | | 2006 - | Encounter | MED CTR CANCER | | | | | | MANJULA Ferguson | | | | 06/04/ | | [place] | | | | 2006 | | [address] | | | | | | [phone] | | | +--------+ + + + [...]
--- OUTSIDE RECORDS SUMMARY | ~2020-04-09 | XMS | Encounter Summary ---
Demographics + + + | Address | [address] | | | [place] [address] | + + + | Home Phone | | + + + | Preferred Language | Unknown | + + + | Marital Status | | + + + | Oriental Orthodox Affiliation | Unknown | + + + | Race | White | + + + | Ethnic Group | Not or | + + + Author + + + | Author | [facility] | | | and [place] | + + + | Organization | [facility] | | | and [...] Team Providers + +------+ + | Care Paper Folder Name | Role | Phone | + +------+ + PCP | Unavailable | + +------+ + Encounter Details +--------+ + + + + | Date | Type | Department | Care Team | Description | +--------+ + + + + | 09/23/ | Hospital | [facility] | Ryan Nava | | | 2013 | Encounter | HOSPITAL HEMATOLOGY | [address] | | | | | ONCOLOGY [address] | [address] | | | | | [place] | [place] | | | | | [address] | [address] | | | | | [phone] | [phone] | | | | | | | [...]
--- OUTSIDE RECORDS SUMMARY | ~2020-04-09 | XMS | Encounter Summary ---
Demographics + + + | Address | [address] | | | [place] [address] | + + + | Home Phone | | + + + | Preferred Language | Unknown | + + + | Marital Status | | + + + | Worship Affiliation | Unknown | + + + | Race | White | + + + | Ethnic Group | Not or | + + + Author + + + | Author | [facility] | | | and [place] | + + + | Organization | [facility] | | | and [...] Team Providers + +------+ + | Care Football Scout Name | Role | Phone | + +------+ + PCP | Unavailable | + +------+ + Encounter Details +--------+ + + + + | Date | Type | Department | Care Team | Description | +--------+ + + + + | 02/02/ | Hospital | [facility] | Ryan Nava | | | 2011 | Encounter | HOSPITAL GENERIC OP | [address] | | | | | CONVERSION | [address] | | | | | [address]PART[address] | [place] | | | | | [address] [place] | [address] | | | | | [place] | [phone] | | | | | [address] | | | | | | [phone] | | | +--------+ + + + [...]
--- OUTSIDE RECORDS SUMMARY | ~2020-04-09 | XMS | Encounter Summary ---
Demographics + + + | Address | [address] | | | [place] [address] | + + + | Home Phone | | + + + | Preferred Language | Unknown | + + + | Marital Status | | + + + | Taoism Affiliation | Unknown | + + + | Race | White | + + + | Ethnic Group | Not or | + + + Author + + + | Author | [facility] | | | and [place] | + + + | Organization | [facility] | | | [...] Team Providers + +------+ + | Care Radial Router Operator Name | Role | Phone | + +------+ + PCP | Unavailable | + +------+ + Encounter Details +--------+ + + + + | Date | Type | Department | Care Team | Description | +--------+ + + + + | 05/04/ | Hospital | [facility] | Ryan Nava | | | 2011 | Encounter | HOSPITAL LABORATORY | [address] | | | | | [address] [place] | [address] [place] | | | | | [place] | [place] | | | | | [address] | [address] | | | | | [phone] | [phone] | | | | | | | [...]
--- OUTSIDE RECORDS SUMMARY | ~2020-04-09 | XMS | Encounter Summary ---
Demographics + + + | Address | [address] | | | [place] [address] | + + + | Home Phone | | + + + | Preferred Language | Unknown | + + + | Marital Status | | + + + | Mosque Affiliation | Unknown | + + + | Race | White | + + + | Ethnic Group | Not or | + + + Author + + + | Author | [facility] | | | and [place] | + + + | Organization | [facility] | | | and [...] Team Providers + +------+ + | Care Rf Test Engineer Name | Role | Phone | + +------+ + PCP | Unavailable | + +------+ + Encounter Details +--------+ + + + + | Date | Type | Department | Care Team | Description | +--------+ + + + + | 07/10/ | Hospital | [facility] | Ryan Nava | | | 2011 | Encounter | HOSPITAL LABORATORY | [address] | | | | | [address] [place] | [address] [place] | | | | | [place] | [place] | | | | | [address] | [address] | | | | | [phone] | [phone] | | | | | | | [...]
--- OUTSIDE RECORDS SUMMARY | ~2020-04-09 | XMS | Encounter Summary ---
Demographics + + + | Address | [address] | | | [place] [address] | + + + | Home Phone | | + + + | Preferred Language | Unknown | + + + | Marital Status | | + + + | Synagogue Affiliation | Unknown | + + + [...] Team Providers + +------+ + | Care Tubular Products Fabricator Name | Role | Phone | + +------+ + PCP | Unavailable | + +------+ + Encounter Details +--------+ + + + + | Date | Type | Department | Care Team | Description | +--------+ + + + + | 04/08/ | Hospital | [facility] | | | | 2006 - | Encounter | MED CTR CANCER | | | | | | MANJULA Ferguson | | | | 05/05/ | | [place] | | | | 2006 | | [address] | | | | | | [phone] | | | +--------+ + + + [...]
--- OUTSIDE RECORDS SUMMARY | ~2020-04-09 | XMS | Encounter Summary ---
Demographics + + + | Address | [address] | | | [place] [address] | + + + | Home Phone | | + + + | Preferred Language | Unknown | + + + | Marital Status | | + + + | Restorationism Affiliation | Unknown | + + + | Race | White | + + + | Ethnic Group | Not or | + + + Author + + + | Author | [facility] | | | and [place] | + + + | Organization | [facility] | | [...] Team Providers + +------+ + | Care Patternator Name | Role | Phone | + [...] [place] | | | | | [address] | [address] | | | | | [phone] | [phone] | | | | | | | [...]
--- OUTSIDE RECORDS SUMMARY | ~2020-04-09 | XMS | Encounter Summary ---
Demographics + + + | Address | [address] | | | [place] [address] | + + + | Home Phone | | + + + | Preferred Language | Unknown | + + + | Marital Status | | + + + | Hindu Affiliation | Unknown | + + + | Race | White | + + + | Ethnic Group | Not or | + + + Author + + + | Author | [facility] | | | and [place] | + + + | Organization | [facility] | | | and [...] Team Providers + +------+ + | Care Manager Automotive Name | Role | Phone | + [...] [place] | | | | | [address] | [address] | | | | | [phone] | [phone] | | | | | | | [...]
--- OUTSIDE RECORDS SUMMARY | ~2020-04-09 | XMS | Encounter Summary ---
Demographics + + + | Address | [address] | | | [place] [address] | + + + | Home Phone | | + + + | Preferred Language | Unknown | + + + | Marital Status | | + + + | Caodaism Affiliation | Unknown | + + + | Race | White | + + + | Ethnic Group | Not or | + + + Author + + + | Author | [facility] | | | and [place] | + + + | Organization | [facility] | | [...] Team Providers + +------+ + | Care Silo Filler Name | Role | Phone | + +------+ + PCP | Unavailable | + +------+ + Encounter Details +--------+ + + + + | Date | Type | Department | Care Team | Description | +--------+ + + + + | 10/19/ | Telephone | [facility] | Gissell Hernandez | | | 2017 | | HOSPITAL HEMATOLOGY | L, Health Unit | | | | | ONCOLOGY [address] | Coordinator | | | | | [place] | | | | | | [address] | | | | | | [phone] | | | +--------+ + + + [...] + + documented as of this encounter Miscellaneous Notes Telephone Encounter - Alvino Hernandezsheryl Sandoval - 10/19/2017 3:45 PM MONIQUE spoke with Gali garcia and told her I was faxing over her order for her mammogram to be done at [facility] in [place] as well as her labs to [facility]. I asked her if she would like me to get the ma mmogram scheduled for her and she stated that she would rather call them because of her avai lability being limited. I agreed with her that this would be a great idea and faxed the ord er over [facility]. I also told her if we didn't hear back from her that I would f ollow up in a least a week. Staci documented in th is encounter Plan of Treatment Not on filedocumented as of this encounter Visit Diagnoses Not on filedocumented in this encounter"
--- OUTSIDE RECORDS SUMMARY | ~2020-04-09 | XMS | Encounter Summary ---
Demographics + + + | Address | [address] | | | [place] [address] | + + + | Home Phone | | + + + | Preferred Language | Unknown | + + + | Marital Status | | + + + | Jehovah'S Witness Affiliation | Unknown | + + + | Race | White | + + + | Ethnic Group | Not or | + + + Author + + + | Author | [facility] | | | and [place] | + + + | Organization | [facility] | | [...] Team Providers + +------+ + | Care Patient Access Associate Name | Role | Phone | + [...] [place] | | | | | [address] | [address] | | | | | [phone] | [phone] | | | | | | | [...]
--- OUTSIDE RECORDS SUMMARY | ~2020-04-09 | XMS | Encounter Summary ---
Demographics + + + | Address | [address] | | | [place] [address] | + + + | Home Phone | | + + + | Preferred Language | Unknown | + + + | Marital Status | | + + + | Congregation Affiliation | Unknown | + + + | Race | White | + + + | Ethnic Group | Not or | + + + Author + + + | Author | [facility] | | | and [place] | + + + | Organization | [facility] | | | and [...] Team Providers + +------+ + | Care Medical Record Assistant Name | Role | Phone | + +------+ + PCP | Unavailable | + +------+ + Encounter Details +--------+ + + + + | Date | Type | Department | Care Team | Description | +--------+ + + + + | 10/08/ | Hospital | [facility] | Ryan Nava | | | 2016 | Encounter | HOSPITAL HEMATOLOGY | [address] | | | | | ONCOLOGY [address] | [address] | | | | | [place] | [place] | | | | | [address] | [address] | | | | | [phone] | [phone] | | | | | | | [...]
--- OUTSIDE RECORDS SUMMARY | ~2020-04-09 | XMS | Encounter Summary ---
Demographics + + + | Address | [address] | | | [place] [address] | + + + | Home Phone | | + + + | Preferred Language | Unknown | + + + | Marital Status | | + + + | Confucianist Affiliation | Unknown | + + + | Race | White | + + + | Ethnic Group | Not or | + + + Author + + + | Author | [facility] | | | and [place] | + + + | Organization | [facility] | | [...] Team Providers + +------+ + | Care Customer Records Division Supervisor Name | Role | Phone | + +------+ + PCP | Unavailable | + +------+ + Encounter Details +--------+ + + + + | Date | Type | Department | Care Team | Description | +--------+ + + + + | 03/11/ | Hospital | [facility] | | | | 2006 - | Encounter | MED CTR CANCER | | | | | | MANJULA Ferguson | | | | 04/04/ | | [place] | | | | 2006 | | [address] | | | | | | [phone] | | | +--------+ + + + [...]
[2020-04-09] MEDS ORDERED: METOPROLOL TAR100 MG PO (17:31)
[2020-04-09] MEDS ORDERED: LISINOPRIL40 MG PO (17:31)
[2020-04-09] MEDS ORDERED: ALENDRONATE SOD70 MG PO (17:31)
[2020-04-09] MEDS ORDERED: DULOXETINE HCL60 MG PO (17:32)
[2020-04-09] MEDS ORDERED: ATORVASTATIN CA10 MG PO (17:32)
== END 2020-04-09 19:56 | disposition home or self-care (01) ==
LOC: ED 17:10
DX: R00.0 Tachycardia, unspecified (principal); E83.42 Hypomagnesemia; I16.9 Hypertensive crisis, unspecified; I10 Essential (primary) hypertension; Z85.038 Personal history of other malignant neoplasm of large intestine; Z85.3 Personal history of malignant neoplasm of breast; F17.200 Nicotine dependence, unspecified, uncomplicated; Z79.899 Other long term (current) drug therapy
CPT/HCPCS: 93005; 93010; 96365; 96366; 96375; 99285-25; J3475; J7030; J7060

== ENCOUNTER 2021-08-01 09:13 | Emergency (ER) | payer MEDICARE ==
[~2021-08-01] VITALS: Ht 154.9 cm; Wt 40.4 kg
[~2021-08-01 09:13] MED LIST changes: +ALENDRONATE SOD70 MG PO; +ATORVASTATIN CA10 MG PO; +DULOXETINE HCL60 MG PO; +ELIQUIS5 MG PO; +FOSAMAX70 MG PO; +LISINOPRIL40 MG PO; +VITAMIN D21250 MCG PO; +ZESTRIL40 MG PO
--- OUTSIDE RECORDS SUMMARY | 2021-08-01 09:20 | XMS ---
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 Balwinder VISIT COUNT (12 MO.) 2 [facility] TOTAL 2 NOTE: Visits indicate total known visits. ED/UCC VISIT TRACKING (12 MO.) 08/01/2021 09:13 [facility] [place] TYPE: Emergency COMPLAINT: - LETHARGIC 07/15/2021 14:16 [facility] [place] TYPE: Emergency COMPLAINT: - SOB INPATIENT VISIT TRACKING (12 MO.) 07/15/2021 14:17 [facility] [place] TYPE: Observation COMPLAINT: - SVT DIAGNOSES: - Pleurodynia - Liver disease, unspecified - Hypoxemia - Chronic obstructive pulmonary disease, unspecified - Acute embolism and thrombosis of unspecified deep veins of left lower extremity - Nicotine dependence, cigarettes, uncomplicated - Supraventricular tachycardia - Bacteriuria - Essential (primary) hypertension [email or web address]
--- NOTE | 2021-08-02 13:49 | EKG ---
[facility] [address] [place] [address] Signed Sinus rhythm with short DC with occasional premature ventricular complexes Rightward axis Low voltage QRS Cannot rule out Anterior infarct (cited on or before 15-JUL-2021) Abnormal ECG When compared with ECG of 15-JUL-2021 21:19, premature ventricular complexes are now present Nonspecific T wave abnormality no longer evident in Inferior leads Confirmed by HAILE PRICE DO ([id number]) on 08/02/2021 1:49:34 PM Electronically Signed By: HAILE PRICE DO 08/02/21 1349 PATIENT NAME: JENNIFER GOODE Electrocardiogram DATE OF : 48 PHYSICIAN: HAILE PRICE DO REPORT #: [id number] REPORT IS CONFIDENTIAL AND NOT TO BE RELEASED WITHOUT AUTHORIZATION
== END 2021-08-01 19:38 | disposition home or self-care (01) ==
LOC: ED 09:13
DX: U07.1 COVID-19 (principal); J12.82 Pneumonia due to coronavirus disease 2019; R09.02 Hypoxemia; N17.9 Acute kidney failure, unspecified; R16.0 Hepatomegaly, not elsewhere classified; I10 Essential (primary) hypertension; Z85.3 Personal history of malignant neoplasm of breast; Z85.038 Personal history of other malignant neoplasm of large intestine; F17.200 Nicotine dependence, unspecified, uncomplicated; Z79.01 Long term (current) use of anticoagulants; Z79.899 Other long term (current) drug therapy
CPT/HCPCS: 51702; 71045; 80053; 81001; 83735; 83880; 85025; 85379; 93005; 93010; 94640; 99285-25; C9803; G0480; J1100; J2060; J7040; J7121; U0003